=== PATIENT | male | born 1940 | race African-American/Black ===

== ENCOUNTER 2019-01-26 00:49 | Inpatient (IN) | payer MEDICARE ==
[2019-01-26 01:19] VITALS: BMI 31.3
--- NOTE | 2019-01-26 01:34 | PDOC ---
History of Present Illness - General Chief Complaint: Syncope/Near Syncope Stated Complaint: SYNCOPE Time Seen by Provider: 01/26/19 01:34 History Source: Patient, Family Exam Limitations: No Limitations - History of Present Illness Initial Comments: 78 year old male with PMH HTN, lymphoma (in remission) presented to ED for syncopal episode today. Pt reported around 0000 he was walking up the stairs, then felt very short of breath, and sat down in a chair, then had a witnessed syncopal episode in the chair. Daughter and Son at bedside witnessed the event, and reported he was unconscious for a few seconds, then returned to baseline. Daughter is a nurse and used her personal pulse oximeter on the patient while he was unconscious, reported it was 90%, then return to normal after the pt awoke. Pt reported he now does not feel short of breath, denied chest pain/ palpitations/cough/lower extremity swelling/abdominal pain/back pain/nausea/ vomiting/diarrhea. Pt denied head injury, vomiting. ROS General: denied fever, chills, generalized weakness. HEENT: denied sore throat, rhinorrhea, ear pain. Cardiovascular: denied chest pain, palpitations, syncope, diaphoresis. Respiratory: admitted to shortness of breath, sycnope. denied cough, sputum production, hemoptysis. Gastrointestinal: denied abdominal pain, nausea, vomiting, diarrhea, constipation, blood in stool. Genitourinary: denied dysuria, increased urinary frequency, hematuria, urinary incontinence, flank pain. Back: denied back pain. Musculoskeletal: denied joint pain, muscle pain, joint swelling. Neurological: denied headache, dizziness, numbness, tingling, weakness. Integumentary: denied rash, laceration, abrasion. Hematologic/Lymphatic: denied bruising or bleeding. PE Constitutional: Well-nourished, Well-developed, appearing stated age. HEENT: head is normocephalic, atraumatic. EOMI. PERRLA. Neck: supple. Full ROM. Cardiovascular: regular heart rhythm. no murmurs. no pericardial friction rub. Respiratory: clear to auscultation bilaterally. no crackles, rhonchi or wheezing. no stridor. Gastrointestinal: soft, nontender. normal bowel sounds. no rebound, guarding, masses. Extremities: peripheral pulses intact. no lower extremity edema. Neurological: CN 2-12 grossly intact. moves all four extremities. Psych: awake, alert, oriented x3. follows commands. answers questions appropriately. Past History - Past Medical History Allergies/Adverse Reactions: Allergies Allergy/AdvReac Type Severity Reaction Status Date / Time Penicillins Allergy Verified 01/26/19 01:19 - Psycho Social/Smoking Cessation Hx Smoking History: Never smoked Hx Alcohol Use: Yes (SOCIAL) Drug/Substance Use Hx: No Substance Use Type: None *Physical Exam - Vital Signs Last Vital Signs Temp Pulse Resp BP Pulse Ox 97.8 F 80 17 150/85 97 01/26/19 01:07 01/26/19 01:07 01/26/19 01:07 01/26/19 01:07 01/26/19 01:07 ED Treatment Course - LABORATORY CBC & Chemistry Diagram: 01/26/19 03:43 01/26/19 02:35 Medical Decision Making - Medical Decision Making 78 year old male with above PMH presented to ED for syncopal episode after GOLDBERG going up stairs. Initial Vital Signs Temp Pulse Resp BP Pulse Ox 97.8 F 80 17 150/85 97 01/26/19 01:07 01/26/19 01:07 01/26/19 01:07 01/26/19 01:07 01/26/19 01:07 Afebrile. No tachycardia. No tachypnea. Hypertensive. No hypoxia on room air. Labs ordered: CBC, CMP, cardiac profile, BNP, D-DIMER, PT/PTT/INR Imaging ordered: CXR Medications ordered: none EKG performed at 0123: rate 77, regular rhythm, normal axis, normal intervals, flat T in aVL, no other ST changes. 01/26/19 03:52 Laboratory Last Values WBC Cancelled 01/26/19 02:35 Corrected WBC (auto) Cancelled 01/26/19 02:35 RBC Cancelled 01/26/19 02:35 Hgb Cancelled 01/26/19 02:35 Hct Cancelled 01/26/19 02:35 MCV Cancelled 01/26/19 02:35 MCH Cancelled 01/26/19 02:35 MCHC Cancelled 01/26/19 02:35 RDW Cancelled 01/26/19 02:35 Plt Count Cancelled 01/26/19 02:35 MPV Cancelled 01/26/19 02:35 Absolute Neuts (auto) Cancelled 01/26/19 02:35 Absolute Lymphs (auto) Cancelled 01/26/19 02:35 Absolute Monos (auto) Cancelled 01/26/19 02:35 Absolute Eos (auto) Cancelled 01/26/19 02:35 Absolute Basos (auto) Cancelled 01/26/19 02:35 Add Manual Diff Cancelled 01/26/19 02:35 Neutrophils % Cancelled 01/26/19 02:35 Lymphocytes % Cancelled 01/26/19 02:35 Monocytes % Cancelled 01/26/19 02:35 Eosinophils % Cancelled 01/26/19 02:35 Basophils % Cancelled 01/26/19 02:35 Nucleated RBC % Cancelled 01/26/19 02:35 Platelet Estimate Cancelled 01/26/19 02:35 Platelet Comment Cancelled 01/26/19 02:35 Normal RBC Morphology Cancelled 01/26/19 02:35 PT with INR 13.00 SEC (9.7-13.0) 01/26/19 02:35 INR 1.10 (0.83-1.09) H 01/26/19 02:35 PTT (Actin FS) 19.6 SECONDS (25.2-36.5) L 01/26/19 02:35 D-Dimer 55927 ng/ml (0-500) H 01/26/19 02:35 Sodium 138 mmol/L (136-145) 01/26/19 02:35 Potassium 4.4 mmol/L (3.5-5.1) 01/26/19 02:35 Chloride 103 mmol/L (98-107) 01/26/19 02:35 Carbon Dioxide 29 mmol/L (21-32) 01/26/19 02:35 Anion Gap 7 MMOL/L (8-16) L 01/26/19 02:35 BUN 18.8 mg/dL (7-18) H 01/26/19 02:35 Creatinine 1.1 mg/dL (0.55-1.3) 01/26/19 02:35 Est GFR (CKD-EPI)AfAm 75.18 01/26/19 02:35 Est GFR (CKD-EPI)NonAf 64.86 01/26/19 02:35 Random Glucose 119 mg/dL (74-106) H 01/26/19 02:35 Calcium 8.8 mg/dL (8.5-10.1) 01/26/19 02:35 Total Bilirubin 0.7 mg/dL (0.2-1) 01/26/19 02:35 AST 29 U/L (15-37) 01/26/19 02:35 ALT 26 U/L (13-61) 01/26/19 02:35 Alkaline Phosphatase 127 U/L (45-117) H 01/26/19 02:35 Creatine Kinase 114 U/L (26-308) 01/26/19 02:35 Troponin I 0.98 ng/ml (0.00-0.05) H* 01/26/19 02:35 B-Natriuretic Peptide 43.8 pg/ml (5-450) 01/26/19 02:35 Total Protein 7.1 g/dl (6.4-8.2) 01/26/19 02:35 Albumin 4.3 g/dl (3.4-5.0) 01/26/19 02:35 Elevated dimer with elevated troponin. Pt is high risk for PE. ASA 324 mg PO chew once ordered. CTA chest ordered. 01/26/19 04:24 CBC WBC 7.0 K/mm3 (4.0-10.0) 01/26/19 03:43 Corrected WBC (auto) Cancelled 01/26/19 02:35 RBC 5.14 M/mm3 (4.00-5.60) 01/26/19 03:43 Hgb 14.0 GM/dL (11.7-16.9) 01/26/19 03:43 Hct 42.5 % (35.4-49) 01/26/19 03:43 MCV 82.8 fl (80-96) 01/26/19 03:43 MCH 27.2 pg (25.7-33.7) 01/26/19 03:43 MCHC 32.8 g/dl (32.0-35.9) 01/26/19 03:43 RDW 14.5 % (11.9-15.9) 01/26/19 03:43 Plt Count 129 K/MM3 (134-434) L 01/26/19 03:43 MPV 8.4 fl (7.5-11.1) 01/26/19 03:43 Absolute Neuts (auto) 4.6 K/mm3 (1.5-8.0) 01/26/19 03:43 Absolute Lymphs (auto) Cancelled 01/26/19 02:35 Absolute Monos (auto) Cancelled 01/26/19 02:35 Absolute Eos (auto) Cancelled 01/26/19 02:35 Absolute Basos (auto) Cancelled 01/26/19 02:35 Add Manual Diff Cancelled 01/26/19 02:35 Neutrophils % 66.0 % (42.8-82.8) 01/26/19 03:43 Lymphocytes % 22.5 % (8-40) 01/26/19 03:43 Monocytes % 10.1 % (3.8-10.2) 01/26/19 03:43 Eosinophils % 1.1 % (0-4.5) 01/26/19 03:43 Basophils % 0.3 % (0-2.0) 01/26/19 03:43 Nucleated RBC % 0 % (0-0) 01/26/19 03:43 Platelet Estimate Cancelled 01/26/19 02:35 Platelet Comment Cancelled 01/26/19 02:35 Normal RBC Morphology Cancelled 01/26/19 02:35 01/26/19 06:07 Dr. Garza called from Imaging phone specialist, reported saddle embolus. Heparin ordered. 01/26/19 06:56 Dr. Whitney consulted, he reported he will be able to care for the patient at our facility. Sign out given to ICU. Pending admission. 01/26/19 07:02 EKG performed a 0657: rate 74, regular rhythm, normal axis, normal intervals, flat T in aVL, no other ST changes. Discharge - Discharge Information Problems reviewed: Yes Clinical Impression/Diagnosis: Saddle embolism of pulmonary artery Condition: Guarded - Admission Yes - Follow up/Referral - Patient Discharge Instructions - Post Discharge Activity
--- NOTE | 2019-01-26 01:57 | PDOC ---
Attending Attestation - Resident Resident Name: Jimena Bain - ED Attending Attestation I have performed the following: I have examined & evaluated the patient, The case was reviewed & discussed with the resident, I agree w/resident's findings & plan, Exceptions are as noted - HPI HPI: 01/26/19 03:58 78 years old with past medical history significant for hypertension and remote history of lymphoma presents to the ED with an exertional syncopal event after walking up a flight of stairs patient began to feel short of breath then syncopized was unconscious for a few seconds daughter who is a nurse checked an O2 sat which was 90% patient now with no complaints Symptoms were exacerbated by exertion alleviated with time - Physicial Exam PE: 01/26/19 03:58 Vitals: Triage Vital signs reviewed General Appearance: No acute distress, well nourished well developed, Head: Atraumatic, Chest Wall: Nontender Cardiac: Regular rate and rhythym, no murmurs, no rubs, no gallops, Lungs: Clear to auscultation bilateral, good air movement bilaterally, Abdomen: Soft, non distended, normal bowel sounds, non tender to palpation Extremities: Full range of motion to all extremities, no cyanosis, clubbing, or edema Skin: Warm and dry, no rashes or lesions, no rash, no petechiae Psych: Normal mood, normal affect - Critical Care Time Total Critical Care Time: 45 Critical Care Statement: The care of this patient involved high complexity decision making to prevent further life threatening deterioration of the patient 's condition and/or to evaluate & treat vital organ system(s) failure or risk of failure. - Medical Decision Making 01/26/19 03:59 78 years old with syncopal event We will check labs EKG troponin d-dimer given shortness of breath observe and reassess Troponin slightly elevated d-dimer moderately elevated will CTA to rule out PE patient will require admission for further management. Reevaluation CTA positive for saddle embolism see official imaging front end wheel loader operator report No evidence of significant right heart strain noted on CT Case discussed with interventional radiology Dr. Suarez and ICU Dr. Crouch Given that patient is hemodynamically stable will place patient on a heparin drip and admit patient to ICU Stat echo ordered for patient Findings discussed with patient and family patient pending ICU placement Heart Score/ECG Review - ECG Impressions Comment:: 01/26/19 04:02 EKG performed at 123 demonstrates normal sinus rhythm no ST elevations or T wave inversions normal axis Interpreted by me.
[2019-01-26 03:31] LABS: ALBUMIN 4.3 g/dl (3.4-5.0); BILIRUBIN,TOTAL 0.7 mg/dL (0.2-1); BLOOD UREA NITROGEN 18.8 mg/dL (7-18); CALCIUM 8.8 mg/dL (8.5-10.1); CREATININE 1.1 mg/dL (0.55-1.3); POTASSIUM 4.4 mmol/L (3.5-5.1); TOT PROT 7.1 g/dl (6.4-8.2)
[2019-01-26] MEDS ORDERED: ASPIRIN 81 MG CHEWABLE TABLETS PO ONE (03:33)
[2019-01-26 03:37] LABS: INR 1.1 (0.83-1.09)
[2019-01-26 04:02] LABS: BASO % 0.3 % (0-2.0); EOS % 1.1 % (0-4.5); HEMATOCRIT 42.5 % (35.4-49); LYMPH % 22.5 % (8-40); MCH 27.2 pg (25.7-33.7); MCHC 32.8 g/dl (32.0-35.9); MEAN CELL VOLUME 82.8 fl (80-96); MEAN PLT VOLUME 8.4 fl (7.5-11.1); MONO % 10.1 % (3.8-10.2); PLATELET COUNT 129 K/MM3 (134-434); RBC 5.14 M/mm3 (4.00-5.60); RDW 14.5 % (11.9-15.9)
[2019-01-26] MEDS ORDERED: ASPIRIN 81 MG CHEWABLE TABLETS ONE (04:04)
[2019-01-26] MEDS ORDERED: HEPARIN NA (PORCINE) 5,000 UNITS/ML 1ML VIAL IVPUSH PRN ×3 (06:08→06:09)
[2019-01-26] MEDS ORDERED: HEPARIN INFUSION - 25,000 UNITS/500 ML INFUS.BAG IVPB ONE (07:24)
[2019-01-26] MEDS: HEPARIN - 25,000 UNIT in SODIUM CHLORIDE 495 ML IV SCH ×2 (07:34→08:43)
--- NOTE | 2019-01-26 08:00 | HP ---
CHIEF COMPLAINT: Shortness of breath PCP: Floyd HISTORY OF PRESENT ILLNESS: Pt is a 78 y/o M (B. [facility]. [facility]) with a PMH of HTN, HLD, and Lymphoma (diagnosed 2000 now in remission) who presents to [facility] due to shortness of breath and syncope. Pt accompanied by daughter at bedside. Per patient, he was visiting his brother yesterday after [employer]ecost[employer]. Pt had an uneventful lunch with brother; later that evening, pt endorses he abruptly became short of breath while walking up stairs in his house. Pt went to sit on a couch in his home when he lost consciousness. Pt's son witnessed this episode. Pt denies any chest pain during the event. Denies any recent travel history, immobilization, history of clotting disorders, recent surgery, or any other possible precipitating factors. Daughter does state that pt may sometimes sit all day while he is on his computer. PMH- As above Social History- Denies Tobacco or alcohol use. Denies illicit drug use. Fam Hx- Father-DM. Mother Healthy. Sibling with DM Surg History- Denies Allergies- Penicillin ER course was notable for: (1) D-Dimer 91763 (2) Trop 0.98 (3) CTA---> Saddle Pulm Embolus Recent Travel: PAST MEDICAL HISTORY: PAST SURGICAL HISTORY: Social History: Smoking: Alcohol: Drugs: Allergies Penicillins Allergy (Verified 01/26/19 01:19) HOME MEDICATIONS: REVIEW OF SYSTEMS CONSTITUTIONAL: Absent: fever, chills, diaphoresis, generalized weakness, malaise, loss of appetite, weight change HEENT: Absent: rhinorrhea, nasal congestion, throat pain, throat swelling, difficulty swallowing, mouth swelling, ear pain, eye pain, visual changes CARDIOVASCULAR: Absent: chest pain, syncope, palpitations, irregular heart rate, lightheadedness , peripheral edema RESPIRATORY: PRESENT shortness of breath GASTROINTESTINAL: Absent: abdominal pain, abdominal distension, nausea, vomiting, diarrhea, constipation, melena, hematochezia GENITOURINARY: Absent: dysuria, frequency, urgency, hesitancy, hematuria, flank pain, genital pain MUSCULOSKELETAL: Absent: myalgia, arthralgia, joint swelling, back pain, neck pain SKIN: Absent: rash, itching, pallor HEMATOLOGIC/IMMUNOLOGIC: Absent: easy bleeding, easy bruising, lymphadenopathy, frequent infections ENDOCRINE: Absent: unexplained weight gain, unexplained weight loss, heat intolerance, cold intolerance NEUROLOGIC: PRESENT syncope PSYCHIATRIC: Absent: anxiety, depression, suicidal or homicidal ideation, hallucinations. PHYSICAL EXAMINATION Vital Signs - 24 hr 01/26/19 01/26/19 01:07 07:09 Temperature 97.8 F 98.0 F Pulse Rate 80 Pulse Rate [ 74 Right Radial] Respiratory 17 16 Rate Blood Pressure 150/85 Blood Pressure 151/79 [Right Arm] O2 Sat by Pulse 97 97 Oximetry (%) GENERAL: NAd AA0x3 HEAD: Normal with no signs of trauma. EYES: EOMI Sclera Clear EARS, NOSE, THROAT: MMM NECK: Supple, No JVD LUNGS: CTA b/l HEART: RRR S1S2 ABDOMEN: Soft, NDNT. MUSCULOSKELETAL: FROM throughout. UPPER EXTREMITIES: 2+ pulses, warm, well-perfused. No cyanosis. No clubbing. No peripheral edema. LOWER EXTREMITIES: Afsaneh's Negative bilaterally. No calf tenderness. No clubbing , cyanosis or edema. NEUROLOGICAL: Cranial nerves II-XII intact. Normal speech. PSYCHIATRIC: Cooperative. Good eye contact. Appropriate mood and affect. SKIN: Moist. No rashes or lesions appreciated Laboratory Results - last 24 hr 01/26/19 01/26/19 01/26/19 02:35 02:35 02:35 WBC Cancelled Corrected WBC (auto) Cancelled RBC Cancelled Hgb Cancelled Hct Cancelled MCV Cancelled MCH Cancelled MCHC Cancelled RDW Cancelled Plt Count Cancelled MPV Cancelled Absolute Neuts (auto) Cancelled Absolute Lymphs (auto) Cancelled Absolute Monos (auto) Cancelled Absolute Eos (auto) Cancelled Absolute Basos (auto) Cancelled Add Manual Diff Cancelled Neutrophils % Cancelled Lymphocytes % Cancelled Monocytes % Cancelled Eosinophils % Cancelled Basophils % Cancelled Nucleated RBC % Cancelled Platelet Estimate Cancelled Platelet Comment Cancelled Normal RBC Morphology Cancelled PT with INR INR PTT (Actin FS) D-Dimer Sodium 138 Potassium 4.4 Chloride 103 Carbon Dioxide 29 Anion Gap 7 L BUN 18.8 H Creatinine 1.1 Est GFR (CKD-EPI)AfAm 75.18 Est GFR (CKD-EPI)NonAf 64.86 Random Glucose 119 H Calcium 8.8 Total Bilirubin 0.7 AST 29 ALT 26 Alkaline Phosphatase 127 H Creatine Kinase 114 Troponin I 0.98 H* B-Natriuretic Peptide Total Protein 7.1 Albumin 4.3 01/26/19 01/26/19 01/26/19 02:35 02:35 02:35 WBC Corrected WBC (auto) RBC Hgb Hct MCV MCH MCHC RDW Plt Count MPV Absolute Neuts (auto) Absolute Lymphs (auto) Absolute Monos (auto) Absolute Eos (auto) Absolute Basos (auto) Add Manual Diff Neutrophils % Lymphocytes % Monocytes % Eosinophils % Basophils % Nucleated RBC % Platelet Estimate Platelet Comment Normal RBC Morphology PT with INR 13.00 INR 1.10 H PTT (Actin FS) 19.6 L D-Dimer Sodium Potassium Chloride Carbon Dioxide Anion Gap BUN Creatinine Est GFR (CKD-EPI)AfAm Est GFR (CKD-EPI)NonAf Random Glucose Calcium Total Bilirubin AST ALT Alkaline Phosphatase Creatine Kinase Troponin I B-Natriuretic Peptide 43.8 Total Protein Albumin 01/26/19 01/26/19 02:35 03:43 WBC 7.0 Corrected WBC (auto) RBC 5.14 Hgb 14.0 Hct 42.5 MCV 82.8 MCH 27.2 MCHC 32.8 RDW 14.5 Plt Count 129 L MPV 8.4 Absolute Neuts (auto) 4.6 Absolute Lymphs (auto) Absolute Monos (auto) Absolute Eos (auto) Absolute Basos (auto) Add Manual Diff Neutrophils % 66.0 Lymphocytes % 22.5 Monocytes % 10.1 Eosinophils % 1.1 Basophils % 0.3 Nucleated RBC % 0 Platelet Estimate Platelet Comment Normal RBC Morphology PT with INR INR PTT (Actin FS) D-Dimer 84886 H Sodium Potassium Chloride Carbon Dioxide Anion Gap BUN Creatinine Est GFR (CKD-EPI)AfAm Est GFR (CKD-EPI)NonAf Random Glucose Calcium Total Bilirubin AST ALT Alkaline Phosphatase Creatine Kinase Troponin I B-Natriuretic Peptide Total Protein Albumin ASSESSMENT/PLAN: Pt is a 78 y/o M (B. Dem. [facility]) with a PMH of HTN, HLD, and Lymphoma (diagnosed 2000 now in remission) who presents to [facility] due to shortness of breath and syncope #Cardio---- Saddle Pulmonary Embolus -CTA-----> Bilateral PE w/ Saddle pulmonary embolus extending from the right main pulmonary artery into the left main pulmonary artery -D-Dimer 01324 -Trop 0.98--Will trend -Pt started on Heparin drip. Will bolus patient now with 7,000 U weight based based on PE Heparin protocol. Will place patient on 32 cc hep gtt as well based on weight and PE history. -Dr Trujillo consulted. Plan to take patient for Cath Directed Thrombectomy -ICU admission- Dr Crouch aware and accepts patient to service. Continuous cardiac and pulse ox monitoring #FEN -NS@75cc -Monitor Electrolytes -NPO #DVT ppx -Hep gtt #Dispo -ICU Admission Visit type - Emergency Visit Emergency Visit: Yes ED Registration Date: 01/26/19 Care time: The patient presented to the Emergency Department on the above date and was hospitalized for further evaluation of their emergent condition. - New Patient This patient is new to me today: Yes Date on this admission: 01/26/19 - Critical Care Critical Care patient: No ATTENDING PHYSICIAN STATEMENT I saw and evaluated the patient. I reviewed the resident's note and discussed the case with the resident. I agree with the resident's findings and plan as documented. SUBJECTIVE: OBJECTIVE: ASSESSMENT AND PLAN:
[2019-01-26] MEDS ORDERED: HEPARIN NA (PORCINE) 5,000 UNITS/ML 1ML VIAL IVPUSH ONE (08:20)
--- NOTE | 2019-01-26 08:44 | PN ---
Teaching Attending Note Name of Resident: Matt Banegas ATTENDING PHYSICIAN STATEMENT I saw and evaluated the patient. I reviewed the resident's note and discussed the case with the resident. I agree with the resident's findings and plan as documented. SUBJECTIVE: CC: Syncope and SOB HPI: Mr. Sandy is a pleasant 78 y/o gentleman with h/o HLP, HTN, and Non Hodgkin 's lymphoma s/p chemo in 2010 , now in remission who presented with sudden onset SOb and syncope. patient and daugther provided the hx. close to [place] last nig , they returned home and after climbing the stairs to his home, he felt very SOB. He was going to the recliner to rest when all of sudden he lost consciousness and fell onthe recliner. No head trauma. BP was taken by daughter rima it was high ( she can't recalll number, ) SAt O2 was 90%. 911 was called. No recent hx of travel, or surgery. No h/o active cancer. last colo was 10 yrs ago, no smoking . He sits at his computer for many hours every day . Upon arrival to ER. D dimer was elevated. VS were stable. CTA was done and the prelim report showed b/l pulm emboli with saddle embolism. he was started on heparin gtt at 7:30 am. IR was called OBJECTIVE: NAd, awake, alert, cooperative. HEENT: MMM, no facial droop. no LAP inneck . CV: RRR, no MRG Lungs: CTAB Abd; soft, NT, ND , no hepatomegaly, NL BS Ext: No edema or erythema on upper or lower extremities. fungal infection in R 4th interdigital web. Neuro: EOMI, round equal pupils. Reactive to light.tongue and uvula at midline. strength 5/5 in upper and lower extremities proximally and ddistally. sensation to light touch nl in face and rest of the body. . EKG sinus rhythm, prolonged QTc . nl axis. no BBB CT reperot ( prelim ) reviewed. ASSESSMENT AND PLAN: Mr. Sandy is a pleasant 78 y/o gentleman with h/o HLP, HTN, and Non Hodgkin's lymphoma s/p chemo in 2010 , now in remission who presented with sudden onset SOb and syncope 1- Saddle PE with b/l emboli. Could be provoked by sedentary life style ( prolonged sitting at home ). Other reasons like hypercoagulable state , migth need to be r/o . - He was started on heparin gtt with no bolus an hour ago.. - will give bolus fo 7000 units now ( 80u/kg) - will increase heparin gtt rate form 23 cc to 32 cc ( 18 units/kg= 1620 units = 32 ml ) - will adjust heparin infusion protocol fro a goal PTT of 70-90 - monitor PTT. next one in 4 hours - EKG with no signs of Right heart strain. hypodermically stable. - I discussed case with Dr. Whitney, who indicated no role for thrombectomy without evidence of R heart strain. - will get stat Echo. repeat trop - will decide on IR intervention after echo results and repeat trop . - ICU admission - monitor closely - needs hypercoagulable w/u and age appropriate cancer screening. - I d/w maricarmen and his daugther risk of bleeding with AC. they accept the risk of bleedign given the increased risk of thrombus expansion with no AC. 2- H/o HTN: monitor BP closely for now. 3- H/o HL Critical Care Total Critical Care Time (in minutes): 40 Critical Care Statement: The care of this patient involved high complexity decision making to prevent further life threatening deterioration of the patient 's condition and/or to evaluate & treat vital organ system(s) failure or risk of failure.
[2019-01-26] MEDS ORDERED: HEPARIN - 25,000 UNIT in SODIUM CHLORIDE 495 ML IV SCH ×2 (09:15→09:34)
[2019-01-26] MEDS ORDERED: MUPIROCIN 2% TOPICAL OINTMENT FOR DECOLONIZATION NS SCH (10:00)
--- NOTE | 2019-01-26 10:00 | EKG ---
Test Reason : Blood Pressure : / mmHG Vent. Rate : 074 BPM Atrial Rate : 074 BPM P-R Int : 156 ms QRS Dur : 080 ms QT Int : 434 ms P-R-T Axes : 060 -11 024 degrees QTc Int : 481 ms NORMAL SINUS RHYTHM PROLONGED QT ABNORMAL ECG WHEN COMPARED WITH ECG OF 26-JAN-2019 01:23, NO SIGNIFICANT CHANGE WAS FOUND Confirmed by LADY VAUGHN MD ([id number]) on 01/26/2019 10:00:02 AM Referred By: Confirmed By:LADY VAUGHN MD
--- NOTE | 2019-01-26 10:00 | EKG ---
Test Reason : Blood Pressure : / mmHG Vent. Rate : 077 BPM Atrial Rate : 077 BPM P-R Int : 178 ms QRS Dur : 088 ms QT Int : 422 ms P-R-T Axes : 062 -08 042 degrees QTc Int : 477 ms NORMAL SINUS RHYTHM NORMAL ECG NO PREVIOUS ECGS AVAILABLE Confirmed by LADY VAUGHN MD ([id number]) on 01/26/2019 10:00:26 AM Referred By: Confirmed By:LADY VAUGHN MD
[2019-01-26] MEDS ORDERED: SODIUM CHLORIDE 1,000 ML IV SCH ×2 (10:15→18:08)
[2019-01-26] MEDS ORDERED: ACETAMINOPHEN INJECTION 100 ML IVPB ONE (11:11)
[2019-01-26] MEDS ORDERED: ONDANSETRON 4 MG/2 ML VIAL ONE (11:12)
--- NOTE | 2019-01-26 12:03 | ECHO ---
Name: LIT NULL Exam:Adult Echocardiogram Study Date: 01/26/2019 09:26 AM Age: 78 yrs Reason For Study: sddle PE Height: 67 in Weight: 200 lb BSA: 2.0 m2 MMode/2D Measurements & Calculations IVSd: 1.1 cm Ao root diam: 2.2 cm LVIDd: 3.0 cm LA dimension: 2.4 cm LVIDs: 2.2 cm LVPWd: 1.2 cm LVPWs: 1.2 cm EDV(Teich): 34.8 ml ESV(Teich): 16.4 ml LVOT diam: 1.8 cm TAPSE: 1.3 cm RV S Alex: 11.6 cm/sec Doppler Measurements & Calculations MV E max alex: 40.5 cm/sec Ao V2 max: 122.4 cm/sec MV A max alex: 97.7 cm/sec Ao max P.0 mmHg MV E/A: 0.41 AI P1/2t: 553.0 msec MV dec time: 0.19 sec SHERIN(V,D): 1.7 cm2 AI max alex: 333.3 cm/sec LV V1 max P.8 mmHg AI max P.4 mmHg LV V1 max: 84.4 cm/sec AI dec slope: 176.5 cm/sec2 TR max alex: 181.3 cm/sec PA V2 max: 62.5 cm/sec TR max P.2 mmHg PA max P.6 mmHg Med Peak E' Alex: 3.5 cm/sec Med E/e': 11.5 Lat Peak E' Alex: 6.4 cm/sec Lat E/e': 6.3 Procedure A complete two-dimensional transthoracic echocardiogram was performed (2D, M-mode, Doppler and color flow Doppler). Technically limited study. Left Ventricle The left ventricle is normal in size. Left ventricular systolic function is normal. Ejection Fraction = 55- 60%. No regional wall motion abnormalities noted. Right Ventricle The right ventricle is not well visualized. RV systolic function could not be accurately visualized b ut appears somewhat diminished. Atria The left atrial size is normal. Right atrial size is normal. Mitral Valve There is mild mitral annular calcification. There is no mitral regurgitation noted. Tricuspid Valve The tricuspid valve is normal in structure and function. There is mild tricuspid regurgitation. Right ventricular systolic pressure is normal. Aortic Valve There is mild aortic sclerosis.;. Mild aortic regurgitation. Pulmonic Valve The pulmonic valve is not well visualized. Great Vessels The aortic root is normal size. Pericardium/Pleura There is no pericardial effusion. Interpretation Summary Technically limited study The left ventricle is normal in size. Left ventricular systolic function is normal. No regional wall motion abnormalities noted. Ejection Fraction = 55-60%. The right ventricle is not well visualized. RV systolic function could not be accurately visualized but appears somewhat mildly diminished The left atrial size is normal. Right atrial size is normal. There is mild mitral annular calcification. There is mild tricuspid regurgitation. Right ventricular systolic pressure is normal. No evidence of pulmonary hypertension There is mild aortic sclerosis. Mild aortic regurgitation. The aortic root is normal size. There is no pericardial effusion. Previous study is not available for comparison Clinical correlation is recommended Gio Prescott MD 01/26/2019 12:03 PM
[2019-01-26] MEDS ORDERED: MECLIZINE HCL 25 MG TABLET (FP) ONE (13:07)
[2019-01-26] MEDS ORDERED: ENOXAPARIN NA (PORCINE) 100 MG/1 ML DISP.SYRIN SQ SCH (13:15)
[2019-01-26] MEDS ORDERED: ENOXAPARIN NA (PORCINE) 100 MG/1 ML DISP.SYRIN SQ ONE (13:23)
--- NOTE | 2019-01-26 14:07 | CONSULT ---
Consultation: CONSULT REQUEST: ICU CONSULT HISTORY OF PRESENT ILLNESS: Patient is a 78 yo M with a PMHx of HTN, Non-Hodgkins Lymphoma (s/p chemo in 2010), presented with SOB and an episode of syncope yesterday. He said he was walking up the stairs last night when he felt sob. He then went on the couch and lost consciousness for less than a minute per daughter. His daughter checked his O2 sat via pulse oximeter and had a read of 90%. 911 was called and patient was brought to the ER where he was found to have b/l pulm saddle embolism via CTA. Echo was done with poor evaluation of RV. possible slight decrease in RV. No evidence of Pulm Htn. Patient HD stable, Heart rate wnl, saturating well on nasal canula. Offers no complaints at this time. Denies SOB, chest pain, nausea, vomiting, fevers, chills. Denies recent travel, history of clots, family history of clots. REVIEW OF SYSTEMS: CONSTITUTIONAL: Absent: fever, chills, diaphoresis, generalized weakness, malaise, loss of appetite, weight change HEENT: Absent: rhinorrhea, nasal congestion, throat pain, throat swelling, difficulty swallowing, mouth swelling, ear pain, eye pain, visual changes CARDIOVASCULAR: Absent: chest pain, syncope, palpitations, irregular heart rate, lightheadedness , peripheral edema RESPIRATORY: Absent: cough, shortness of breath, dyspnea with exertion, orthopnea, wheezing, stridor, hemoptysis GASTROINTESTINAL: Absent: abdominal pain, abdominal distension, nausea, vomiting, diarrhea, constipation, melena, hematochezia SKIN: Absent: rash, itching, pallor PHYSICAL EXAMINATION Vital Signs - 24 hr 01/26/19 01/26/19 01/26/19 01:07 07:09 08:42 Temperature 97.8 F 98.0 F 98.2 F Pulse Rate 80 Pulse Rate [ 74 71 Right Radial] Respiratory 17 16 14 Rate Blood Pressure 150/85 Blood Pressure 151/79 146/86 [Right Arm] O2 Sat by Pulse 97 97 100 Oximetry (%) 01/26/19 01/26/19 01/26/19 09:42 09:47 11:01 Temperature Pulse Rate Pulse Rate [ 67 73 Right Radial] Respiratory 17 17 Rate Blood Pressure Blood Pressure 149/83 151/74 [Right Arm] O2 Sat by Pulse 100 100 100 Oximetry (%) 01/26/19 13:33 Temperature Pulse Rate Pulse Rate [ 67 Right Radial] Respiratory 17 Rate Blood Pressure Blood Pressure 157/64 [Right Arm] O2 Sat by Pulse 100 Oximetry (%) GENERAL: a/o x 3 HEAD: Normal with no signs of trauma. EYES: Pupils equal, round and reactive to light, extraocular movements intact, sclera anicteric EARS, NOSE, THROAT: oropharynx clear without exudates. Moist mucous membranes. NECK: supple without lymphadenopathy, JVD, or masses. LUNGS: Breath sounds equal, clear to auscultation bilaterally HEART: RRR ABDOMEN: Soft, nontender, not distended, normoactive bowel sounds UPPER EXTREMITIES: 2+ pulses, warm, well-perfused. No peripheral edema. NEUROLOGICAL: Cranial nerves II-XII intact. Normal speech. Normal gait. Laboratory Results - last 24 hr 01/26/19 01/26/19 01/26/19 02:35 02:35 02:35 WBC Cancelled Corrected WBC (auto) Cancelled RBC Cancelled Hgb Cancelled Hct Cancelled MCV Cancelled MCH Cancelled MCHC Cancelled RDW Cancelled Plt Count Cancelled MPV Cancelled Absolute Neuts (auto) Cancelled Absolute Lymphs (auto) Cancelled Absolute Monos (auto) Cancelled Absolute Eos (auto) Cancelled Absolute Basos (auto) Cancelled Add Manual Diff Cancelled Neutrophils % Cancelled Lymphocytes % Cancelled Monocytes % Cancelled Eosinophils % Cancelled Basophils % Cancelled Nucleated RBC % Cancelled Platelet Estimate Cancelled Platelet Comment Cancelled Normal RBC Morphology Cancelled PT with INR INR PTT (Actin FS) D-Dimer Sodium 138 Potassium 4.4 Chloride 103 Carbon Dioxide 29 Anion Gap 7 L BUN 18.8 H Creatinine 1.1 Est GFR (CKD-EPI)AfAm 75.18 Est GFR (CKD-EPI)NonAf 64.86 Random Glucose 119 H Calcium 8.8 Total Bilirubin 0.7 AST 29 ALT 26 Alkaline Phosphatase 127 H Creatine Kinase 114 Troponin I 0.98 H* B-Natriuretic Peptide Total Protein 7.1 Albumin 4.3 01/26/19 01/26/19 01/26/19 02:35 03:43 08:35 WBC 7.0 Corrected WBC (auto) RBC 5.14 Hgb 14.0 Hct 42.5 MCV 82.8 MCH 27.2 MCHC 32.8 RDW 14.5 Plt Count 129 L MPV 8.4 Absolute Neuts (auto) 4.6 Absolute Lymphs (auto) Absolute Monos (auto) Absolute Eos (auto) Absolute Basos (auto) Add Manual Diff Neutrophils % 66.0 Lymphocytes % 22.5 Monocytes % 10.1 Eosinophils % 1.1 Basophils % 0.3 Nucleated RBC % 0 Platelet Estimate Platelet Comment Normal RBC Morphology PT with INR INR PTT (Actin FS) D-Dimer 37719 H Sodium Potassium Chloride Carbon Dioxide Anion Gap BUN Creatinine Est GFR (CKD-EPI)AfAm Est GFR (CKD-EPI)NonAf Random Glucose Calcium Total Bilirubin AST ALT Alkaline Phosphatase Creatine Kinase 91 Troponin I 1.14 H* B-Natriuretic Peptide Total Protein Albumin Active Medications Generic Name Dose Route Start Last Admin Trade Name Freq PRN Reason Stop Dose Admin Chlorhexidine Gluconate 1 applic 01/26/19 22:00 Hibiclens For Decolonization - TP HS CHINTAN Enoxaparin Sodium 90 mg 01/26/19 13:15 01/26/19 13:30 Lovenox - SQ 90 mg BID [facility]INTAN Administration Sodium Chloride 1,000 mls @ 75 mls/hr 01/26/19 10:15 01/26/19 11:24 Normal Saline - IV 75 mls/hr ASDIR CHINTAN Administration Mupirocin 1 applic 01/26/19 10:00 01/26/19 10:01 Bactroban Ointment (For Decolonization) - NS 01/31/19 09:59 Not Given BID CHINTAN ASSESSMENT/PLAN: #B/L Saddle PE #Syncope #HTN #Hx of Non-Hodgkins Lymphoma -Patient was on heparin drip, now on Lovenox. -HD stable, saturating well, asymptomatic -No indication for tPA at this time due to the reasons above. -IR on board -trend troponin -monitor vital signs -tele monitoring Dispo: We will continue to follow the patient. Thank you for this consultative opportunity. Visit type - Emergency Visit Emergency Visit: Yes ED Registration Date: 01/26/19 Care time: The patient presented to the Emergency Department on the above date and was hospitalized for further evaluation of their emergent condition. - New Patient This patient is new to me today: Yes Date on this admission: 01/26/19 - Critical Care Critical Care patient: Yes Total Critical Care Time (in minutes): 40 Critical Care Statement: The care of this patient involved high complexity decision making to prevent further life threatening deterioration of the patient 's condition and/or to evaluate & treat vital organ system(s) failure or risk of failure. ATTENDING PHYSICIAN STATEMENT I saw and evaluated the patient. I reviewed the resident's note and discussed the case with the resident. I agree with the resident's findings and plan as documented. SUBJECTIVE: OBJECTIVE: ASSESSMENT AND PLAN:
--- NOTE | 2019-01-26 15:14 | PN ---
Teaching Attending Note Name of Resident: Indira Obregon ATTENDING PHYSICIAN STATEMENT I saw and evaluated the patient. I reviewed the resident's note and discussed the case with the resident. I agree with the resident's findings and plan as documented. SUBJECTIVE: Patient seen and examined in the ER. Breathing feels better. NAD. No CP. ECHO: some poor windows but no indication of Right heart strain. Intake & Output 01/23/19 01/24/19 01/25/19 01/26/19 23:59 23:59 23:59 23:59 Weight 200 lb Last Vital Signs Temp Pulse Resp BP Pulse Ox 98.2 F 62 17 129/71 100 01/26/19 08:42 01/26/19 14:41 01/26/19 14:41 01/26/19 14:41 01/26/19 14:41 Active Medications Chlorhexidine Gluconate (Hibiclens For Decolonization -) 1 applic TP HS [facility] Enoxaparin Sodium (Lovenox -) 90 mg SQ BID [facility] Last Admin: 01/26/19 13:30 Dose: 90 mg Sodium Chloride (Normal Saline -) 1,000 mls @ 75 mls/hr IV ASDIR [facility] Last Admin: 01/26/19 11:24 Dose: 75 mls/hr Mupirocin (Bactroban Ointment (For Decolonization) -) 1 applic NS BID [facility] Stop: 01/31/19 09:59 Last Admin: 01/26/19 10:01 Dose: Not Given GENERAL: Awake and alert, NAD HEAD: Normal with no signs of trauma. EYES: Pupils equal, round and reactive to light, extraocular movements intact, sclera anicteric EARS, NOSE, THROAT: oropharynx clear without exudates. Moist mucous membranes. NECK: supple without lymphadenopathy, JVD, or masses. LUNGS: Clear to auscultation bilaterally HEART: S1S2, RRR ABDOMEN: Soft, nontender, not distended, normoactive bowel sounds UPPER EXTREMITIES: 2+ pulses, warm, well-perfused. No peripheral edema. NEUROLOGICAL: Non-focal Laboratory Results - last 24 hr 01/26/19 01/26/19 01/26/19 02:35 02:35 02:35 WBC Cancelled Corrected WBC (auto) Cancelled RBC Cancelled Hgb Cancelled Hct Cancelled MCV Cancelled MCH Cancelled MCHC Cancelled RDW Cancelled Plt Count Cancelled MPV Cancelled Absolute Neuts (auto) Cancelled Absolute Lymphs (auto) Cancelled Absolute Monos (auto) Cancelled Absolute Eos (auto) Cancelled Absolute Basos (auto) Cancelled Add Manual Diff Cancelled Neutrophils % Cancelled Lymphocytes % Cancelled Monocytes % Cancelled Eosinophils % Cancelled Basophils % Cancelled Nucleated RBC % Cancelled Platelet Estimate Cancelled Platelet Comment Cancelled Normal RBC Morphology Cancelled PT with INR INR PTT (Actin FS) D-Dimer Sodium 138 Potassium 4.4 Chloride 103 Carbon Dioxide 29 Anion Gap 7 L BUN 18.8 H Creatinine 1.1 Est GFR (CKD-EPI)AfAm 75.18 Est GFR (CKD-EPI)NonAf 64.86 Random Glucose 119 H Calcium 8.8 Total Bilirubin 0.7 AST 29 ALT 26 Alkaline Phosphatase 127 H Creatine Kinase 114 Troponin I 0.98 H* B-Natriuretic Peptide Total Protein 7.1 Albumin 4.3 01/26/19 01/26/19 01/26/19 02:35 03:43 08:35 WBC 7.0 Corrected WBC (auto) RBC 5.14 Hgb 14.0 Hct 42.5 MCV 82.8 MCH 27.2 MCHC 32.8 RDW 14.5 Plt Count 129 L MPV 8.4 Absolute Neuts (auto) 4.6 Absolute Lymphs (auto) Absolute Monos (auto) Absolute Eos (auto) Absolute Basos (auto) Add Manual Diff Neutrophils % 66.0 Lymphocytes % 22.5 Monocytes % 10.1 Eosinophils % 1.1 Basophils % 0.3 Nucleated RBC % 0 Platelet Estimate Platelet Comment Normal RBC Morphology PT with INR INR PTT (Actin FS) D-Dimer 06591 H Sodium Potassium Chloride Carbon Dioxide Anion Gap BUN Creatinine Est GFR (CKD-EPI)AfAm Est GFR (CKD-EPI)NonAf Random Glucose Calcium Total Bilirubin AST ALT Alkaline Phosphatase Creatine Kinase 91 Troponin I 1.14 H* B-Natriuretic Peptide Total Protein Albumin ASSESSMENT/PLAN: Bilateral Pulmonary Embolism: at present hemodynamically stable without evidence of Right Heart Strain Syncope HTN Hx of Non-Hodgkins Lymphoma AC with Lovenox The patient does not meet the criteria for Systemic or Catheter Directed Thrombolysis at this time O2 to maintain saturation At present he does not require ICU monitoring. Can safely monitor in Cardiac Telemetry Will follow Thank you. Dr Crouch
[2019-01-26] MEDS ORDERED: CHLORHEXIDINE GLUCONATE 4% CLEANSER FOR DECOLONIZATION TP SCH (22:00)
[2019-01-26] MEDS: ENOXAPARIN NA (PORCINE) 100 MG/1 ML DISP.SYRIN SQ SCH (22:11)
[2019-01-27 07:53] LABS: BASO % 0.4 % (0-2.0); EOS % 1.8 % (0-4.5); HEMATOCRIT 37.3 % (35.4-49); HEMOGLOBIN 12.3 GM/dL (11.7-16.9); LYMPH % 48.8 % (8-40); MCH 27.1 pg (25.7-33.7); MCHC 33.1 g/dl (32.0-35.9); MEAN CELL VOLUME 81.9 fl (80-96); MEAN PLT VOLUME 9.3 fl (7.5-11.1); MONO % 11.2 % (3.8-10.2); NEUT % 37.8 % (42.8-82.8); PLATELET COUNT 115 K/MM3 (134-434); RBC 4.55 M/mm3 (4.00-5.60); RDW 14.7 % (11.9-15.9); WHITE BLOOD COUNT 5.2 K/mm3 (4.0-10.0)
[2019-01-27 08:23] LABS: ALBUMIN 3.4 g/dl (3.4-5.0); BILIRUBIN,TOTAL 0.9 mg/dL (0.2-1); BLOOD UREA NITROGEN 12.3 mg/dL (7-18); CALCIUM 8.3 mg/dL (8.5-10.1); MAGNESIUM 2.4 mg/dL (1.8-2.4); PHOSPHOROUS 3.3 mg/dL (2.5-4.9); TOT PROT 5.7 g/dl (6.4-8.2)
[2019-01-27 08:31] LABS: INR 1.2 (0.83-1.09); PROTHROMBIN TIME (PATIENT) 14.2 SEC (9.7-13.0)
[2019-01-27 08:32] LABS: ACTIVATED PTT 41.7 SECONDS (25.2-36.5)
[2019-01-27] MEDS: ENOXAPARIN NA (PORCINE) 100 MG/1 ML DISP.SYRIN SQ SCH ×2 (10:29→22:41)
--- NOTE | 2019-01-27 15:48 | PN ---
Progress Note (short form) - Note Progress Note: Resting in NAD. No CP or SOB. Breathing feels better. No acute events overnight. Intake & Output 01/24/19 01/25/19 01/26/19 01/27/19 23:59 23:59 23:59 23:59 Intake Total 225 450 Balance 225 450 Weight 200 lb Last Vital Signs Temp Pulse Resp BP Pulse Ox 97.9 F 62 14 140/79 100 01/27/19 06:00 01/27/19 12:00 01/27/19 12:00 01/27/19 12:00 01/27/19 09:45 Active Medications Enoxaparin Sodium (Lovenox -) 90 mg SQ BID [facility] Last Admin: 01/27/19 10:29 Dose: 90 mg Sodium Chloride (Normal Saline -) 1,000 mls @ 75 mls/hr IV ASDIR [facility] Last Admin: 01/26/19 20:10 Dose: 75 mls/hr GENERAL: Awake and alert, NAD HEAD: Normal with no signs of trauma. EYES: Pupils equal, round and reactive to light, extraocular movements intact, sclera anicteric EARS, NOSE, THROAT: oropharynx clear without exudates. Moist mucous membranes. NECK: supple without lymphadenopathy, JVD, or masses. LUNGS: Clear to auscultation bilaterally HEART: S1S2, RRR ABDOMEN: Soft, nontender, not distended, normoactive bowel sounds UPPER EXTREMITIES: 2+ pulses, warm, well-perfused. No peripheral edema. NEUROLOGICAL: Non-focal Laboratory Results - last 24 hr 01/26/19 01/26/19 01/27/19 13:26 15:45 05:40 WBC 5.2 RBC 4.55 Hgb 12.3 Hct 37.3 MCV 81.9 MCH 27.1 MCHC 33.1 RDW 14.7 Plt Count 115 L MPV 9.3 D Absolute Neuts (auto) 1.9 Neutrophils % 37.8 L D Lymphocytes % 48.8 H D Monocytes % 11.2 H Eosinophils % 1.8 Basophils % 0.4 Nucleated RBC % 0 PT with INR INR PTT (Actin FS) 174.4 H Sodium Potassium Chloride Carbon Dioxide Anion Gap BUN Creatinine Est GFR (CKD-EPI)AfAm Est GFR (CKD-EPI)NonAf Random Glucose Calcium Phosphorus Magnesium Total Bilirubin AST ALT Alkaline Phosphatase Troponin I 0.58 H Total Protein Albumin 01/27/19 01/27/19 05:40 05:40 WBC RBC Hgb Hct MCV MCH MCHC RDW Plt Count MPV Absolute Neuts (auto) Neutrophils % Lymphocytes % Monocytes % Eosinophils % Basophils % Nucleated RBC % PT with INR 14.20 H INR 1.20 H PTT (Actin FS) 41.7 H Sodium 142 Potassium 4.0 Chloride 110 H Carbon Dioxide 27 Anion Gap 6 L BUN 12.3 Creatinine 1.0 Est GFR (CKD-EPI)AfAm 84.36 Est GFR (CKD-EPI)NonAf 72.78 Random Glucose 83 Calcium 8.3 L Phosphorus 3.3 Magnesium 2.4 Total Bilirubin 0.9 AST 13 L ALT 18 Alkaline Phosphatase 103 Troponin I Total Protein 5.7 L Albumin 3.4 ASSESSMENT/PLAN: Bilateral Pulmonary Embolism: at present hemodynamically stable without evidence of Right Heart Strain Syncope HTN Hx of Non-Hodgkins Lymphoma AC with Lovenox: Can transition to DOAC The patient does not meet the criteria for Systemic or Catheter Directed Thrombolysis O2 to maintain saturation Cardiac Telemetry monitoring Dr Crouch
--- NOTE | 2019-01-27 17:25 | PN ---
Physical Exam: SUBJECTIVE: Patient seen and examined Pt is a 78 y/o M (B. [facility]. [facility]) with a PMH of HTN, HLD, and Lymphoma ( diagnosed 2000 now in remission) presented w/ shortness of breath is found to have a saddle embolus on CT is admitted for PE treatment. OBJECTIVE: Vital Signs Period Temp Pulse Resp BP Sys/Shabazz Pulse Ox Last 24 Hr 97.9 F-97.9 F 53-64 14-20 96-145/48-79 100-100 GENERAL: The patient is awake, alert, and fully oriented, in no acute distress. EYES: PERRL, extraocular movements intact, ENT: clear without exudates, moist mucous membranes. NECK: supple. LUNGS: Breath sounds equal, clear to auscultation bilaterally, no wheezes, no crackles, HEART: Regular rate and rhythm, S1, S2 without murmur, rub or gallop. ABDOMEN: Soft, nontender, nondistended, normoactive bowel sounds, no guarding, EXTREMITIES: 2+ pulses, warm, well-perfused, no edema. Laboratory Results - last 24 hr CBC,CMP WBC 5.2 K/mm3 (4.0-10.0) 01/27/19 05:40 Corrected WBC (auto) Cancelled 01/26/19 02:35 RBC 4.55 M/mm3 (4.00-5.60) 01/27/19 05:40 Hgb 12.3 GM/dL (11.7-16.9) 01/27/19 05:40 Hct 37.3 % (35.4-49) 01/27/19 05:40 MCV 81.9 fl (80-96) 01/27/19 05:40 MCH 27.1 pg (25.7-33.7) 01/27/19 05:40 MCHC 33.1 g/dl (32.0-35.9) 01/27/19 05:40 RDW 14.7 % (11.9-15.9) 01/27/19 05:40 Plt Count 115 K/MM3 (134-434) L 01/27/19 05:40 MPV 9.3 fl (7.5-11.1) D 01/27/19 05:40 Absolute Neuts (auto) 1.9 K/mm3 (1.5-8.0) 01/27/19 05:40 Absolute Lymphs (auto) Cancelled 01/26/19 02:35 Absolute Monos (auto) Cancelled 01/26/19 02:35 Absolute Eos (auto) Cancelled 01/26/19 02:35 Absolute Basos (auto) Cancelled 01/26/19 02:35 Add Manual Diff Cancelled 01/26/19 02:35 Neutrophils % 37.8 % (42.8-82.8) L D 01/27/19 05:40 Lymphocytes % 48.8 % (8-40) H D 01/27/19 05:40 Monocytes % 11.2 % (3.8-10.2) H 01/27/19 05:40 Eosinophils % 1.8 % (0-4.5) 01/27/19 05:40 Basophils % 0.4 % (0-2.0) 01/27/19 05:40 Nucleated RBC % 0 % (0-0) 01/27/19 05:40 Platelet Estimate Cancelled 01/26/19 02:35 Platelet Comment Cancelled 01/26/19 02:35 Normal RBC Morphology Cancelled 01/26/19 02:35 Sodium 142 mmol/L (136-145) 01/27/19 05:40 Potassium 4.0 mmol/L (3.5-5.1) 01/27/19 05:40 Chloride 110 mmol/L (98-107) H 01/27/19 05:40 Carbon Dioxide 27 mmol/L (21-32) 01/27/19 05:40 Anion Gap 6 MMOL/L (8-16) L 01/27/19 05:40 BUN 12.3 mg/dL (7-18) 01/27/19 05:40 Creatinine 1.0 mg/dL (0.55-1.3) 01/27/19 05:40 Est GFR (CKD-EPI)AfAm 84.36 01/27/19 05:40 Est GFR (CKD-EPI)NonAf 72.78 01/27/19 05:40 Random Glucose 83 mg/dL (74-106) 01/27/19 05:40 Calcium 8.3 mg/dL (8.5-10.1) L 01/27/19 05:40 Phosphorus 3.3 mg/dL (2.5-4.9) 01/27/19 05:40 Magnesium 2.4 mg/dL (1.8-2.4) 01/27/19 05:40 Total Bilirubin 0.9 mg/dL (0.2-1) 01/27/19 05:40 AST 13 U/L (15-37) L 01/27/19 05:40 ALT 18 U/L (13-61) 01/27/19 05:40 Alkaline Phosphatase 103 U/L (45-117) 01/27/19 05:40 Creatine Kinase 91 U/L (26-308) 01/26/19 08:35 Troponin I 0.58 ng/ml (0.00-0.05) H 01/26/19 13:26 B-Natriuretic Peptide 43.8 pg/ml (5-450) 01/26/19 02:35 Total Protein 5.7 g/dl (6.4-8.2) L 01/27/19 05:40 Albumin 3.4 g/dl (3.4-5.0) 01/27/19 05:40 Active Medications Current Medications Enoxaparin Sodium (Lovenox -) 90 mg SQ BID [facility] Last Admin: 01/27/19 10:29 Dose: 90 mg Sodium Chloride (Normal Saline -) 1,000 mls @ 75 mls/hr IV ASDIR [facility] Last Admin: 01/26/19 20:10 Dose: 75 mls/hr Home Medications Medication Instructions Recorded Amlodipine Besylate 5 mg PO DAILY 01/27/19 Atorvastatin Ca [Lipitor] 40 mg PO DAILY 01/27/19 Last Vital Signs Temp Pulse Resp BP Pulse Ox 97.9 F 61 14 145/64 100 01/27/19 06:00 01/27/19 16:00 01/27/19 16:00 01/27/19 16:00 01/27/19 09:45 ASSESSMENT/PLAN: Pt is a 78 y/o M pmh of HTN, HLD, and Lymphoma (diagnosed 2000 now in remission ) presented w/ shortness of breath is found to have a saddle embolus on CT is admitted for PE treatment. #SOB 2/[address]: Bilateral PE w/ Saddle pulmonary embolus extending from the right main pulmonary artery into the left main pulmonary artery. D-Dimer 62618 Lovenox 90 sq BID Pt clinical stable Coumadin will start tonight Lovenox for 5 days (today is day 2), bridge to coumadin Pt's daughter agrees to f/u at resident clinic #HTN hold- amlodipine home med #HLD cont lipitor #DVT Lovenox FEN: monitor lytes, sodium controlled diet, IVF ns 77 Dispo: cont monitoring, extermination inspector AC once d/c Visit type - Emergency Visit Emergency Visit: Yes ED Registration Date: 01/26/19 Care time: The patient presented to the Emergency Department on the above date and was hospitalized for further evaluation of their emergent condition. - New Patient This patient is new to me today: Yes Date on this admission: 01/28/19 - Critical Care Critical Care patient: No - Discharge Referral Referred to [facility] No ATTENDING PHYSICIAN STATEMENT I saw and evaluated the patient. I reviewed the resident's note and discussed the case with the resident. I agree with the resident's findings and plan as documented. SUBJECTIVE: OBJECTIVE: ASSESSMENT AND PLAN:
[2019-01-27] MEDS ORDERED: WARFARIN NA 7.5 MG TABLET (FP) PO ONE (18:10)
--- NOTE | 2019-01-27 18:17 | PN ---
Teaching Attending Note Name of Resident: Ludmila Arteaga ATTENDING PHYSICIAN STATEMENT I saw and evaluated the patient. I reviewed the resident's note and discussed the case with the resident. I agree with the resident's findings and plan as documented. SUBJECTIVE: No fever or chills. No JULIEN . No pain , No SOB . NO CP OBJECTIVE: NAd, awake, alert, cooperative. CV: RRR, no MRG Lungs: CTAB Ext: No edema or erythema on upper or lower extremities. ASSESSMENT AND PLAN: Mr. Sandy is a pleasant 78 y/o gentleman with h/o HLP, HTN, and Non Hodgkin's lymphoma s/p chemo in 2010 , now in remission who presented with sudden onset SOb and syncope 1- Saddle PE with b/l emboli. stable , no tachydardia or hypotension - cont lovenox - AC after dc was d/w him and his daughter . he agrees and accepts the risk of bleeding. due to his insurance situation , NOACS and LOvenox will not be covered and will not be afforded by family - will start coumadin tonight - will need to remain on LOvenox for at least 5 days ( day 2 today ) . When therapeutic INR , then will need overlap of at least 4 hour on lovenox and coumadin - INR in am - has no PZCP , so will genee f/u with resident clinic for at least the first appointment - age appropriate cancer screening and hypercoagulable w/u as out pt - dc IVF 2- H/o HTN: monitor BP closely for now. 3- H/o HL his pharmacy at [facility] was called. they will not accept out side scripts. [place] [facility] [place]
[2019-01-27] MEDS: NYSTATIN 100,000 UNIT/GM TOPICAL CREAM 15 GM TUBE TP SCH (22:40)
[2019-01-28 07:05] LABS: HEMATOCRIT 39.7 % (35.4-49); HEMOGLOBIN 13.1 GM/dL (11.7-16.9); MCHC 32.9 g/dl (32.0-35.9); MEAN CELL VOLUME 82.1 fl (80-96); MEAN PLT VOLUME 8.8 fl (7.5-11.1); PLATELET COUNT 114 K/MM3 (134-434); RBC 4.83 M/mm3 (4.00-5.60); RDW 14.7 % (11.9-15.9)
[2019-01-28 07:28] LABS: INR 1.18 (0.83-1.09); PROTHROMBIN TIME (PATIENT) 13.9 SEC (9.7-13.0)
[2019-01-28 07:31] LABS: ACTIVATED PTT 45.6 SECONDS (25.2-36.5)
[2019-01-28 07:49] LABS: BLOOD UREA NITROGEN 10.8 mg/dL (7-18); CALCIUM 8.7 mg/dL (8.5-10.1); POTASSIUM 4.2 mmol/L (3.5-5.1)
--- NOTE | 2019-01-28 08:21 | PN ---
Teaching Attending Note Name of Resident: Harmeet Montilla ATTENDING PHYSICIAN STATEMENT I saw and evaluated the patient. I reviewed the resident's note and discussed the case with the resident. I agree with the resident's findings and plan as documented. SUBJECTIVE: Patient is feeling better with no acute distress, denies any shortness of breath. Vital Signs Temperature 98.3 F 01/28/19 05:41 Pulse Rate 55 L 01/28/19 05:41 Respiratory Rate 13 01/28/19 05:41 Blood Pressure 147/61 01/28/19 05:41 O2 Sat by Pulse Oximetry (%) 99 01/27/19 21:04 GENERAL: The patient is awake, alert, and fully oriented, in no acute distress. HEAD: Normal with no signs of trauma. EYES: PERRL, extraocular movements intact, sclera anicteric, conjunctiva clear. ENT: Ears normal, oropharynx clear without exudates, moist mucous membranes. NECK: Trachea midline, full range of motion, supple. LUNGS: Breath sounds equal, clear to auscultation bilaterally, no wheezes, no crackles, no accessory muscle use. HEART: Regular rate and rhythm, S1, S2 without murmur, rub or gallop. ABDOMEN: Soft, nontender, nondistended, normoactive bowel sounds, no guarding, no rebound, no hepatosplenomegaly, no masses. EXTREMITIES: 2+ pulses, warm, well-perfused, no edema. NEUROLOGICAL: Cranial nerves II through XII grossly intact. Normal speech, gait not observed. PSYCH: Normal mood, normal affect. SKIN: Warm, dry, normal turgor, no rashes or lesions noted CBCD WBC 5.0 K/mm3 (4.0-10.0) 01/28/19 05:42 RBC 4.83 M/mm3 (4.00-5.60) 01/28/19 05:42 Hgb 13.1 GM/dL (11.7-16.9) 01/28/19 05:42 Hct 39.7 % (35.4-49) 01/28/19 05:42 MCV 82.1 fl (80-96) 01/28/19 05:42 MCHC 32.9 g/dl (32.0-35.9) 01/28/19 05:42 RDW 14.7 % (11.9-15.9) 01/28/19 05:42 Plt Count 114 K/MM3 (134-434) L 01/28/19 05:42 MPV 8.8 fl (7.5-11.1) 01/28/19 05:42 CMP Sodium 142 mmol/L (136-145) 01/28/19 05:40 Potassium 4.2 mmol/L (3.5-5.1) 01/28/19 05:40 Chloride 109 mmol/L (98-107) H 01/28/19 05:40 Carbon Dioxide 26 mmol/L (21-32) 01/28/19 05:40 Anion Gap 7 MMOL/L (8-16) L 01/28/19 05:40 BUN 10.8 mg/dL (7-18) 01/28/19 05:40 Creatinine 1.0 mg/dL (0.55-1.3) 01/28/19 05:40 Random Glucose 90 mg/dL (74-106) 01/28/19 05:40 Calcium 8.7 mg/dL (8.5-10.1) 01/28/19 05:40 Total Bilirubin 0.9 mg/dL (0.2-1) 01/27/19 05:40 AST 13 U/L (15-37) L 01/27/19 05:40 ALT 18 U/L (13-61) 01/27/19 05:40 Alkaline Phosphatase 103 U/L (45-117) 01/27/19 05:40 Total Protein 5.7 g/dl (6.4-8.2) L 01/27/19 05:40 Albumin 3.4 g/dl (3.4-5.0) 01/27/19 05:40 CARDIAC ENZYMES Creatine Kinase 91 U/L (26-308) 01/26/19 08:35 Troponin I 0.58 ng/ml (0.00-0.05) H 01/26/19 13:26 Current Medications Generic Name Dose Route Start Last Admin Trade Name Freq PRN Reason Stop Dose Admin Atorvastatin Calcium 40 mg 01/28/19 10:00 Lipitor - PO DAILY [facility] Enoxaparin Sodium 90 mg 01/26/19 22:00 01/27/19 22:41 Lovenox - SQ 90 mg BID [facility] Administration Nystatin 1 applic 01/27/19 22:00 01/27/19 22:40 Mycostatin Cream - TP 1 applic BID [facility] Administration Senna 1 tab 01/28/19 10:00 Senna - PO BID [facility] Warfarin Sodium 7.5 mg 01/28/19 18:00 Coumadin - PO DAILY@1800 [facility] Home Medications Medication Instructions Recorded Amlodipine Besylate 5 mg PO DAILY 01/27/19 Atorvastatin Ca [Lipitor] 40 mg PO DAILY 01/27/19 Lung CTA : Extensive b/l emboli with saddle embolus. Upper abdomen: hepatic cysts and cholelithiasis Renal cysts: inhomonegenois enhancement possible pyelonephritis ECHo: EJF 55-60%, mild AR, rest normal Assessement and plan: Patient is a 78yo male with PMHx of HLP, HTN, and NH lymphoma s/p chemo in 2010 , now in remission who presented with sudden onset SOb and syncope. # Saddle PE with b/l embolism, stable without evidence of Right Heart Strain. On lovenox continue ,keep O2 sat. above 93%, continue coumadin , once therapeutic , patient can be discharged home. When therapeutic INR , then will need overlap of at least 4 hour on lovenox and coumadin - daily INR , f/u with resident clinic for follow up since has no PMD. as per pulmonary ,the patient does not meet the criteria for Systemic or Catheter Directed Thrombolysis. Hx of NH's Lymphoma: age appropriate cancer screening and hypercoagulable w/u as out pt # H/o HTN: monitor BP closely for now. # H/o Non-Hodgkins Lymphoma his pharmacy at an [facility] was called. they will not accept out side scripts. [place] [facility] [place] Px: Coumadin, Lovenox
[2019-01-28] MEDS: ENOXAPARIN NA (PORCINE) 100 MG/1 ML DISP.SYRIN SQ SCH ×2 (10:17→21:39)
[2019-01-28] MEDS: ATORVASTATIN CA 40 MG TABLET (FP) PO SCH (10:17)
[2019-01-28] MEDS: NYSTATIN 100,000 UNIT/GM TOPICAL CREAM 15 GM TUBE TP SCH ×2 (10:18→21:40)
[2019-01-28] MEDS: SENNOSIDES 8.6MG TABLET (FP) PO SCH ×2 (10:20→21:40)
--- NOTE | 2019-01-28 13:29 | PN ---
Progress Note (short form) - Note Progress Note: PULMONARY Denies shortness of breath or chest pain. Saturating 99% on room air. Vital Signs Period Temp Pulse Resp BP Sys/Shabazz Pulse Ox Last 24 Hr 97.8 F-98.3 F 50-67 13-18 134-154/54-74 99-99 Gen: NAD at rest Heart: RRR Lung: decreased breath sounds at the bases Abd: soft, nontender Ext: no edema CBC, BMP 01/28/19 05:42 01/28/19 05:40 INR, PTT INR 1.18 (0.83-1.09) H 01/28/19 05:40 Active Medications Atorvastatin Calcium (Lipitor -) 40 mg PO DAILY [facility] Last Admin: 01/28/19 10:17 Dose: 40 mg Enoxaparin Sodium (Lovenox -) 90 mg SQ BID [facility] Last Admin: 01/28/19 10:17 Dose: 90 mg Nystatin (Mycostatin Cream -) 1 applic TP BID [facility] Last Admin: 01/28/19 10:18 Dose: 1 applic Senna (Senna -) 1 tab PO BID [facility] Last Admin: 01/28/19 10:20 Dose: 1 tab Warfarin Sodium (Coumadin -) 10 mg PO DAILY@1800 [facility] A/P Acute Pulmonary Emboli Syncope RLE DVT HTN Hyperlipidemia h/o Lymphoma - continue anticoagulation to INR 2-3 - O2 as needed - age appropriate cancer screening as outpt - can d/c telemetry
--- NOTE | 2019-01-28 14:53 | PN ---
Physical Exam: SUBJECTIVE: Patient seen and examined Pt is a 78 y/o M (B. [facility]. [facility]) with a PMH of HTN, HLD, and Lymphoma ( diagnosed 2000 now in remission) presented w/ shortness of breath is found to have a saddle embolus on CT is admitted for PE treatment. Today pt is afebrile , asymptomatic and has no other c/o. He is in good state of health. He has passed gas but did not move his bowels yet. Denies f/c/n/v/d/sob/chest pain. OBJECTIVE: Vital Signs Period Temp Pulse Resp BP Sys/Shabazz Pulse Ox Last 24 Hr 97.8 F-99.2 F 50-67 13-18 134-154/54-74 99-99 GENERAL: The patient is awake, alert, and fully oriented, in no acute distress. EYES: PERRL, extraocular movements intact, ENT: clear without exudates, moist mucous membranes. NECK: supple. LUNGS: Breath sounds equal, clear to auscultation bilaterally, no wheezes, no crackles, HEART: Regular rate and rhythm, S1, S2 without murmur, rub or gallop. ABDOMEN: Soft, nontender, nondistended, normoactive bowel sounds, no guarding, EXTREMITIES: 2+ pulses, warm, well-perfused, no edema. Laboratory Results - last 24 hr 01/28/19 01/28/19 01/28/19 05:40 05:40 05:42 WBC 5.0 RBC 4.83 Hgb 13.1 Hct 39.7 MCV 82.1 MCH 27.0 MCHC 32.9 RDW 14.7 Plt Count 114 L MPV 8.8 PT with INR 13.90 H INR 1.18 H PTT (Actin FS) 45.6 H Sodium 142 Potassium 4.2 Chloride 109 H Carbon Dioxide 26 Anion Gap 7 L BUN 10.8 Creatinine 1.0 Est GFR (CKD-EPI)AfAm 84.36 Est GFR (CKD-EPI)NonAf 72.78 Random Glucose 90 Calcium 8.7 Active Medications Current Medications Atorvastatin Calcium (Lipitor -) 40 mg PO DAILY [facility] Last Admin: 01/28/19 10:17 Dose: 40 mg Enoxaparin Sodium (Lovenox -) 90 mg SQ BID [facility] Last Admin: 01/28/19 10:17 Dose: 90 mg Nystatin (Mycostatin Cream -) 1 applic TP BID [facility] Last Admin: 01/28/19 10:18 Dose: 1 applic Senna (Senna -) 1 tab PO BID [facility] Last Admin: 01/28/19 10:20 Dose: 1 tab Warfarin Sodium (Coumadin -) 10 mg PO DAILY@1800 [facility] Home Medications Medication Instructions Recorded Amlodipine Besylate 5 mg PO DAILY 01/27/19 Atorvastatin Ca [Lipitor] 40 mg PO DAILY 01/27/19 ASSESSMENT/PLAN: Pt is a 78 y/o M pmh of HTN, HLD, and Lymphoma (diagnosed 2000 now in remission ) presented w/ shortness of breath is found to have a saddle embolus on CT is admitted for PE treatment. #SOB 2/[address]: Bilateral PE w/ Saddle pulmonary embolus extending from the right main pulmonary artery into the left main pulmonary artery. Lovenox 90 sq BID Coumadin 10 mg started today Lovenox for 5 days (today is day 3), bridge to coumadin Pt's daughter agrees to f/u at resident clinic Discussed the need to f/u outpt age appropriate screening and hypercoag work up #HTN hold- amlodipine home med #HLD cont lipitor #Non-Hodgkins Lymphoma f/u outpt #DVT Lovenox FEN: monitor lytes, sodium controlled diet, IVF ns 77 Dispo: cont monitoring, fdc AC once d/c Visit type - Emergency Visit Emergency Visit: Yes ED Registration Date: 01/26/19 Care time: The patient presented to the Emergency Department on the above date and was hospitalized for further evaluation of their emergent condition. - New Patient This patient is new to me today: Yes Date on this admission: 01/29/19 - Critical Care Critical Care patient: No - Discharge Referral Referred to [facility] Med P.C.: No ATTENDING PHYSICIAN STATEMENT I saw and evaluated the patient. I reviewed the resident's note and discussed the case with the resident. I agree with the resident's findings and plan as documented. SUBJECTIVE: OBJECTIVE: ASSESSMENT AND PLAN:
[2019-01-28] MEDS: WARFARIN NA 5 MG TABLET (UD) PO SCH (17:39)
[2019-01-28] MEDS ORDERED: WARFARIN NA 7.5 MG TABLET (FP) PO SCH (18:00)
[2019-01-28] MEDS ORDERED: PT OWN MED DRAWER 7, Y5N ONE (21:09)
[2019-01-29 07:05] LABS: HEMATOCRIT 38.6 % (35.4-49); HEMOGLOBIN 12.9 GM/dL (11.7-16.9); MCH 26.9 pg (25.7-33.7); MCHC 33.4 g/dl (32.0-35.9); MEAN CELL VOLUME 80.4 fl (80-96); MEAN PLT VOLUME 8.4 fl (7.5-11.1); PLATELET COUNT 123 K/MM3 (134-434); RDW 14.5 % (11.9-15.9); WHITE BLOOD COUNT 4.9 K/mm3 (4.0-10.0)
[2019-01-29 07:15] LABS: INR 1.3 (0.83-1.09); PROTHROMBIN TIME (PATIENT) 15.4 SEC (9.7-13.0)
[2019-01-29 07:19] LABS: BLOOD UREA NITROGEN 10.6 mg/dL (7-18); CALCIUM 8.8 mg/dL (8.5-10.1); CREATININE 1.1 mg/dL (0.55-1.3); POTASSIUM 4.2 mmol/L (3.5-5.1)
[2019-01-29] MEDS ORDERED: PT OWN MED DRAWER 7, Y5N ONE ×2 (08:49→21:33)
[2019-01-29] MEDS: ENOXAPARIN NA (PORCINE) 100 MG/1 ML DISP.SYRIN SQ SCH ×2 (09:07→21:38)
[2019-01-29] MEDS: NYSTATIN 100,000 UNIT/GM TOPICAL CREAM 15 GM TUBE TP SCH ×2 (09:08→21:39)
[2019-01-29] MEDS: SENNOSIDES 8.6MG TABLET (FP) PO SCH ×2 (09:08→21:39)
[2019-01-29] MEDS: ATORVASTATIN CA 40 MG TABLET (FP) PO SCH (09:08)
--- NOTE | 2019-01-29 11:54 | PN ---
Physical Exam: SUBJECTIVE: Patient seen and examined Today pt is afebrile, asymptomatic and has no other c/o. He is in good state of health. He has passed gas and moved his bowels today. Pt has concerns about his financial situation. Will notify social work. Denies f/c/n/v/d/sob/chest pain. OBJECTIVE: Vital Signs Period Temp Pulse Resp BP Sys/Shabazz Pulse Ox Last 24 Hr 97.6 F-99.2 F 54-69 15-18 130-148/67-78 99 GENERAL: The patient is awake, alert, and fully oriented, in no acute distress. EYES: PERRL, extraocular movements intact, ENT: clear without exudates, moist mucous membranes. NECK: supple. LUNGS: Breath sounds equal, clear to auscultation bilaterally, no wheezes, no crackles, HEART: Regular rate and rhythm, S1, S2 without murmur, rub or gallop. ABDOMEN: Soft, nontender, nondistended, normoactive bowel sounds, no guarding, EXTREMITIES: 2+ pulses, warm, well-perfused, no edema. Laboratory Results - last 24 hr CBC,CMP WBC 4.9 K/mm3 (4.0-10.0) 01/29/19 05:38 Corrected WBC (auto) Cancelled 01/26/19 02:35 RBC 4.80 M/mm3 (4.00-5.60) 01/29/19 05:38 Hgb 12.9 GM/dL (11.7-16.9) 01/29/19 05:38 Hct 38.6 % (35.4-49) 01/29/19 05:38 MCV 80.4 fl (80-96) 01/29/19 05:38 MCH 26.9 pg (25.7-33.7) 01/29/19 05:38 MCHC 33.4 g/dl (32.0-35.9) 01/29/19 05:38 RDW 14.5 % (11.9-15.9) 01/29/19 05:38 Plt Count 123 K/MM3 (134-434) L 01/29/19 05:38 MPV 8.4 fl (7.5-11.1) 01/29/19 05:38 Absolute Neuts (auto) 1.9 K/mm3 (1.5-8.0) 01/27/19 05:40 Absolute Lymphs (auto) Cancelled 01/26/19 02:35 Absolute Monos (auto) Cancelled 01/26/19 02:35 Absolute Eos (auto) Cancelled 01/26/19 02:35 Absolute Basos (auto) Cancelled 01/26/19 02:35 Add Manual Diff Cancelled 01/26/19 02:35 Neutrophils % 37.8 % (42.8-82.8) L D 01/27/19 05:40 Lymphocytes % 48.8 % (8-40) H D 01/27/19 05:40 Monocytes % 11.2 % (3.8-10.2) H 01/27/19 05:40 Eosinophils % 1.8 % (0-4.5) 01/27/19 05:40 Basophils % 0.4 % (0-2.0) 01/27/19 05:40 Nucleated RBC % 0 % (0-0) 01/27/19 05:40 Platelet Estimate Cancelled 01/26/19 02:35 Platelet Comment Cancelled 01/26/19 02:35 Normal RBC Morphology Cancelled 01/26/19 02:35 Sodium 140 mmol/L (136-145) 01/29/19 05:38 Potassium 4.2 mmol/L (3.5-5.1) 01/29/19 05:38 Chloride 105 mmol/L (98-107) 01/29/19 05:38 Carbon Dioxide 30 mmol/L (21-32) 01/29/19 05:38 Anion Gap 4 MMOL/L (8-16) L 01/29/19 05:38 BUN 10.6 mg/dL (7-18) 01/29/19 05:38 Creatinine 1.1 mg/dL (0.55-1.3) 01/29/19 05:38 Est GFR (CKD-EPI)AfAm 75.18 01/29/19 05:38 Est GFR (CKD-EPI)NonAf 64.86 01/29/19 05:38 Random Glucose 89 mg/dL (74-106) 01/29/19 05:38 Calcium 8.8 mg/dL (8.5-10.1) 01/29/19 05:38 Phosphorus 3.3 mg/dL (2.5-4.9) 01/27/19 05:40 Magnesium 2.4 mg/dL (1.8-2.4) 01/27/19 05:40 Total Bilirubin 0.9 mg/dL (0.2-1) 01/27/19 05:40 AST 13 U/L (15-37) L 01/27/19 05:40 ALT 18 U/L (13-61) 01/27/19 05:40 Alkaline Phosphatase 103 U/L (45-117) 01/27/19 05:40 Creatine Kinase 91 U/L (26-308) 01/26/19 08:35 Troponin I 0.58 ng/ml (0.00-0.05) H 01/26/19 13:26 B-Natriuretic Peptide 43.8 pg/ml (5-450) 01/26/19 02:35 Total Protein 5.7 g/dl (6.4-8.2) L 01/27/19 05:40 Albumin 3.4 g/dl (3.4-5.0) 01/27/19 05:40 Active Medications Current Medications Atorvastatin Calcium (Lipitor -) 40 mg PO DAILY [facility] Last Admin: 01/29/19 09:08 Dose: 40 mg Enoxaparin Sodium (Lovenox -) 90 mg SQ BID [facility] Last Admin: 01/29/19 09:07 Dose: 90 mg Nystatin (Mycostatin Cream -) 1 applic TP BID [facility] Last Admin: 01/29/19 09:08 Dose: 1 applic Senna (Senna -) 1 tab PO BID [facility] Last Admin: 01/29/19 09:08 Dose: 1 tab Warfarin Sodium (Coumadin -) 10 mg PO DAILY@1800 [facility] Last Admin: 01/28/19 17:39 Dose: 10 mg Home Medications Medication Instructions Recorded Amlodipine Besylate 5 mg PO DAILY 01/27/19 Atorvastatin Ca [Lipitor] 40 mg PO DAILY 01/27/19 ASSESSMENT/PLAN: Pt is a 78 y/o M pmh of HTN, HLD, and Lymphoma (diagnosed 2000 now in remission ) presented w/ shortness of breath is found to have a saddle embolus on CT is admitted for PE treatment. #SOB 2/[address]: Bilateral PE w/ Saddle pulmonary embolus extending from the right main pulmonary artery into the left main pulmonary artery. Lovenox 90 sq BID Coumadin 10 mg started today Lovenox for 5 days (today is day 4), bridge to coumadin Pt's daughter agrees to f/u at resident clinic Discussed the need to f/u outpt age appropriate screening and hypercoag work up #HTN hold- amlodipine home med #HLD cont lipitor #Non-Hodgkins Lymphoma f/u outpt #DVT Lovenox FEN: monitor lytes, sodium controlled diet, IVF ns 77 Dispo: cont monitoring, care home AC once d/c Visit type - Emergency Visit Emergency Visit: Yes ED Registration Date: 01/26/19 Care time: The patient presented to the Emergency Department on the above date and was hospitalized for further evaluation of their emergent condition. - New Patient This patient is new to me today: Yes Date on this admission: 01/31/19 - Critical Care Critical Care patient: No - Discharge Referral Referred to [facility] Med P.C.: No ATTENDING PHYSICIAN STATEMENT I saw and evaluated the patient. I reviewed the resident's note and discussed the case with the resident. I agree with the resident's findings and plan as documented. SUBJECTIVE: OBJECTIVE: ASSESSMENT AND PLAN:
--- NOTE | 2019-01-29 12:40 | PN ---
Progress Note (short form) - Note Progress Note: Resting in NAD. No CP or SOB. Breathing feels better. No acute events overnight. Intake & Output 01/26/19 01/27/19 01/28/19 01/29/19 23:59 23:59 23:59 23:59 Intake Total 225 2150 970 Output Total 800 2150 Balance 225 1350 -1180 Weight 200 lb Last Vital Signs Temp Pulse Resp BP Pulse Ox 98 F 57 L 16 148/69 99 01/29/19 06:00 01/29/19 06:00 01/29/19 06:00 01/29/19 06:00 01/28/19 19:32 Active Medications Atorvastatin Calcium (Lipitor -) 40 mg PO DAILY [facility] Last Admin: 01/29/19 09:08 Dose: 40 mg Enoxaparin Sodium (Lovenox -) 90 mg SQ BID [facility] Last Admin: 01/29/19 09:07 Dose: 90 mg Nystatin (Mycostatin Cream -) 1 applic TP BID [facility] Last Admin: 01/29/19 09:08 Dose: 1 applic Senna (Senna -) 1 tab PO BID [facility] Last Admin: 01/29/19 09:08 Dose: 1 tab Warfarin Sodium (Coumadin -) 10 mg PO DAILY@1800 [facility] Last Admin: 01/28/19 17:39 Dose: 10 mg GENERAL: Awake and alert, NAD HEAD: Normal with no signs of trauma. EYES: Pupils equal, round and reactive to light, extraocular movements intact, sclera anicteric EARS, NOSE, THROAT: oropharynx clear without exudates. Moist mucous membranes. NECK: supple without lymphadenopathy, JVD, or masses. LUNGS: Clear to auscultation bilaterally HEART: S1S2, RRR ABDOMEN: Soft, nontender, not distended, normoactive bowel sounds UPPER EXTREMITIES: 2+ pulses, warm, well-perfused. No peripheral edema. NEUROLOGICAL: Non-focal Laboratory Results - last 24 hr 01/29/19 01/29/19 01/29/19 05:38 05:38 05:38 WBC 4.9 RBC 4.80 Hgb 12.9 Hct 38.6 MCV 80.4 MCH 26.9 MCHC 33.4 RDW 14.5 Plt Count 123 L MPV 8.4 PT with INR 15.40 H INR 1.30 H PTT (Actin FS) 46.0 H Sodium 140 Potassium 4.2 Chloride 105 Carbon Dioxide 30 Anion Gap 4 L BUN 10.6 Creatinine 1.1 Est GFR (CKD-EPI)AfAm 75.18 Est GFR (CKD-EPI)NonAf 64.86 Random Glucose 89 Calcium 8.8 ASSESSMENT/PLAN: Bilateral Pulmonary Embolism: at present hemodynamically stable without evidence of Right Heart Strain Syncope HTN Hx of Non-Hodgkins Lymphoma AC with Lovenox / Coumadin O2 to maintain saturation DC planning Dr Crouch
--- NOTE | 2019-01-29 14:53 | PN ---
Teaching Attending Note Name of Resident: Harmeet Montilla ATTENDING PHYSICIAN STATEMENT I saw and evaluated the patient. I reviewed the resident's note and discussed the case with the resident. I agree with the resident's findings and plan as documented. SUBJECTIVE: Patient is feeling better with no acute distress. Vital Signs Temperature 98.7 F 01/29/19 14:00 Pulse Rate 64 01/29/19 14:00 Respiratory Rate 19 01/29/19 14:00 Blood Pressure 160/74 01/29/19 14:00 O2 Sat by Pulse Oximetry (%) 99 01/29/19 09:00 GENERAL: The patient is awake, alert, and fully oriented, in no acute distress. HEAD: Normal with no signs of trauma. EYES: PERRL, extraocular movements intact, sclera anicteric, conjunctiva clear. ENT: Ears normal, oropharynx clear without exudates, moist mucous membranes. NECK: Trachea midline, full range of motion, supple. LUNGS: Breath sounds equal, clear to auscultation bilaterally, no wheezes, no crackles, no accessory muscle use. HEART: Regular rate and rhythm, S1, S2 without murmur, rub or gallop. ABDOMEN: Soft, nontender, nondistended, normoactive bowel sounds, no guarding, no rebound, no hepatosplenomegaly, no masses. EXTREMITIES: 2+ pulses, warm, well-perfused, no edema. NEUROLOGICAL: Cranial nerves II through XII grossly intact. Normal speech, gait not observed. PSYCH: Normal mood, normal affect. SKIN: Warm, dry, normal turgor, no rashes or lesions noted CBCD WBC 4.9 K/mm3 (4.0-10.0) 01/29/19 05:38 RBC 4.80 M/mm3 (4.00-5.60) 01/29/19 05:38 Hgb 12.9 GM/dL (11.7-16.9) 01/29/19 05:38 Hct 38.6 % (35.4-49) 01/29/19 05:38 MCV 80.4 fl (80-96) 01/29/19 05:38 MCHC 33.4 g/dl (32.0-35.9) 01/29/19 05:38 RDW 14.5 % (11.9-15.9) 01/29/19 05:38 Plt Count 123 K/MM3 (134-434) L 01/29/19 05:38 MPV 8.4 fl (7.5-11.1) 01/29/19 05:38 CMP Sodium 140 mmol/L (136-145) 01/29/19 05:38 Potassium 4.2 mmol/L (3.5-5.1) 01/29/19 05:38 Chloride 105 mmol/L (98-107) 01/29/19 05:38 Carbon Dioxide 30 mmol/L (21-32) 01/29/19 05:38 Anion Gap 4 MMOL/L (8-16) L 01/29/19 05:38 BUN 10.6 mg/dL (7-18) 01/29/19 05:38 Creatinine 1.1 mg/dL (0.55-1.3) 01/29/19 05:38 Random Glucose 89 mg/dL (74-106) 01/29/19 05:38 Calcium 8.8 mg/dL (8.5-10.1) 01/29/19 05:38 Total Bilirubin 0.9 mg/dL (0.2-1) 01/27/19 05:40 AST 13 U/L (15-37) L 01/27/19 05:40 ALT 18 U/L (13-61) 01/27/19 05:40 Alkaline Phosphatase 103 U/L (45-117) 01/27/19 05:40 Total Protein 5.7 g/dl (6.4-8.2) L 01/27/19 05:40 Albumin 3.4 g/dl (3.4-5.0) 01/27/19 05:40 CARDIAC ENZYMES Creatine Kinase 91 U/L (26-308) 01/26/19 08:35 Troponin I 0.58 ng/ml (0.00-0.05) H 01/26/19 13:26 Current Medications Generic Name Dose Route Start Last Admin Trade Name Naz PRN Reason Stop Dose Admin Atorvastatin Calcium 40 mg 01/28/19 10:00 01/29/19 09:08 Lipitor - PO 40 mg DAILY [facility] Administration Enoxaparin Sodium 90 mg 01/26/19 22:00 01/29/19 09:07 Lovenox - SQ 90 mg BID [facility] Administration Nystatin 1 applic 01/27/19 22:00 01/29/19 09:08 Mycostatin Cream - TP 1 applic BID [facility] Administration Senna 1 tab 01/28/19 10:00 01/29/19 09:08 Senna - PO 1 tab BID [facility] Administration Warfarin Sodium 10 mg 01/28/19 18:00 01/28/19 17:39 Coumadin - PO 10 mg DAILY@1800 [facility] Administration Home Medications Medication Instructions Recorded Amlodipine Besylate 5 mg PO DAILY 01/27/19 Atorvastatin Ca [Lipitor] 40 mg PO DAILY 01/27/19 Lung CTA : Extensive b/l emboli with saddle embolus. Upper abdomen: hepatic cysts and cholelithiasis Renal cysts: inhomonegenois enhancement possible pyelonephritis ECHo: EJF 55-60%, mild AR, rest normal Assessement and plan: Patient is a 78yo male with PMHx of HLP, HTN, and NH lymphoma s/p chemo in 2010 , now in remission who presented with sudden onset SOb and syncope. # Saddle PE with b/l embolism, stable without evidence of Right Heart Strain. On lovenox continue ,keep O2 sat. above 93%, continue coumadin , once therapeutic , patient can be discharged home. When therapeutic INR , then will need overlap of at least 4 hour on lovenox and coumadin - daily INR , f/u with resident clinic for follow up since has no PMD. as per pulmonary ,the patient does not meet the criteria for Systemic or Catheter Directed Thrombolysis. INR is 1.3 today. Laboratory Tests 01/26/19 01/27/19 01/28/19 02:35 05:40 05:40 PT with INR INR 1.20 H 1.18 H PTT (Actin FS) 41.7 H 45.6 H D-Dimer 72937 H 01/29/19 05:38 PT with INR 15.40 H INR 1.30 H PTT (Actin FS) 46.0 H D-Dimer Hx of NH's Lymphoma: age appropriate cancer screening and hypercoagulable w/u as out pt. # H/o HTN: monitor BP closely for now. # H/o Non-Hodgkins Lymphoma his pharmacy at an [facility] was called. they will not accept out side scripts. [facility] med[facility] to [facility] [place] [facility] Px: Coumadin, Lovenox
[2019-01-29] MEDS: WARFARIN NA 5 MG TABLET (UD) PO SCH (18:11)
[2019-01-30 07:39] LABS: HEMATOCRIT 41.1 % (35.4-49); HEMOGLOBIN 13.6 GM/dL (11.7-16.9); MCH 26.8 pg (25.7-33.7); MCHC 33.1 g/dl (32.0-35.9); MEAN CELL VOLUME 80.8 fl (80-96); MEAN PLT VOLUME 8.8 fl (7.5-11.1); PLATELET COUNT 127 K/MM3 (134-434); RBC 5.08 M/mm3 (4.00-5.60); RDW 14.7 % (11.9-15.9); WHITE BLOOD COUNT 5.8 K/mm3 (4.0-10.0)
[2019-01-30 07:58] LABS: INR 1.77 (0.83-1.09)
[2019-01-30 08:00] LABS: ACTIVATED PTT 48.7 SECONDS (25.2-36.5)
[2019-01-30 08:13] LABS: BLOOD UREA NITROGEN 13.7 mg/dL (7-18); CREATININE 1.1 mg/dL (0.55-1.3); POTASSIUM 4.1 mmol/L (3.5-5.1)
[2019-01-30] MEDS ORDERED: PT OWN MED DRAWER 7, Y5N ONE ×2 (09:55→21:36)
[2019-01-30] MEDS: ATORVASTATIN CA 40 MG TABLET (FP) PO SCH (10:24)
[2019-01-30] MEDS: SENNOSIDES 8.6MG TABLET (FP) PO SCH ×2 (10:24→21:41)
[2019-01-30] MEDS: ENOXAPARIN NA (PORCINE) 100 MG/1 ML DISP.SYRIN SQ SCH ×2 (10:24→21:41)
[2019-01-30] MEDS: NYSTATIN 100,000 UNIT/GM TOPICAL CREAM 15 GM TUBE TP SCH ×2 (10:26→21:44)
--- NOTE | 2019-01-30 12:19 | PN ---
Progress Note (short form) - Note Progress Note: Resting in NAD. No CP or SOB. No acute events overnight. Intake & Output 01/27/19 01/28/19 01/29/19 01/30/19 23:59 23:59 23:59 23:59 Intake Total 2150 970 400 Output Total 800 2150 Balance 1350 -1180 400 Last Vital Signs Temp Pulse Resp BP Pulse Ox 98 F 62 18 139/71 99 01/30/19 06:25 01/30/19 06:25 01/30/19 06:25 01/30/19 06:25 01/29/19 20:19 Active Medications Atorvastatin Calcium (Lipitor -) 40 mg PO DAILY [facility] Last Admin: 01/30/19 10:24 Dose: 40 mg Enoxaparin Sodium (Lovenox -) 90 mg SQ BID [facility] Last Admin: 01/30/19 10:24 Dose: 90 mg Nystatin (Mycostatin Cream -) 1 applic TP BID [facility] Last Admin: 01/30/19 10:26 Dose: 1 applic Senna (Senna -) 1 tab PO BID [facility] Last Admin: 01/30/19 10:24 Dose: 1 tab Warfarin Sodium (Coumadin -) 10 mg PO DAILY@1800 [facility] Last Admin: 01/29/19 18:11 Dose: 10 mg GENERAL: Awake and alert, NAD HEAD: Normal with no signs of trauma. EYES: Pupils equal, round and reactive to light, extraocular movements intact, sclera anicteric EARS, NOSE, THROAT: oropharynx clear without exudates. Moist mucous membranes. NECK: supple without lymphadenopathy, JVD, or masses. LUNGS: Clear to auscultation bilaterally HEART: S1S2, RRR ABDOMEN: Soft, nontender, not distended, normoactive bowel sounds UPPER EXTREMITIES: 2+ pulses, warm, well-perfused. No peripheral edema. NEUROLOGICAL: Non-focal Laboratory Results - last 24 hr 01/30/19 01/30/19 01/30/19 06:39 06:39 06:39 WBC 5.8 RBC 5.08 Hgb 13.6 Hct 41.1 MCV 80.8 MCH 26.8 MCHC 33.1 RDW 14.7 Plt Count 127 L MPV 8.8 PT with INR 21.00 H INR 1.77 H PTT (Actin FS) 48.7 H Sodium 140 Potassium 4.1 Chloride 107 Carbon Dioxide 27 Anion Gap 6 L BUN 13.7 Creatinine 1.1 Est GFR (CKD-EPI)AfAm 75.18 Est GFR (CKD-EPI)NonAf 64.86 Random Glucose 81 Calcium 9.0 ASSESSMENT/PLAN: Bilateral Pulmonary Embolism: at present hemodynamically stable without evidence of Right Heart Strain Syncope HTN Hx of Non-Hodgkins Lymphoma AC with Lovenox / Coumadin INR goal: 2 to 3 O2 to maintain saturation DC planning Dr Crouch
--- NOTE | 2019-01-30 14:16 | PN ---
Physical Exam: SUBJECTIVE: Patient seen and examined Currently, pt is afebrile, asymptomatic and has no other c/o. He is in good state of health. He has passed gas and moved his bowels today. Pt has concerns about his financial situation. Will notify social work. Denies f/c/n/v/d/sob/ chest pain. OBJECTIVE: Vital Signs Period Temp Pulse Resp BP Sys/Shabazz Pulse Ox Last 24 Hr 97.6 F-98 F 59-75 18-21 120-139/67-72 99 GENERAL: The patient is awake, alert, and fully oriented, in no acute distress. EYES: PERRL, extraocular movements intact, ENT: clear without exudates, moist mucous membranes. NECK: supple. LUNGS: Breath sounds equal, clear to auscultation bilaterally, no wheezes, no crackles, HEART: Regular rate and rhythm, S1, S2 without murmur, rub or gallop. ABDOMEN: Soft, nontender, nondistended, normoactive bowel sounds, no guarding, EXTREMITIES: 2+ pulses, warm, well-perfused, no edema. Laboratory Results - last 24 hr 01/30/19 01/30/19 01/30/19 06:39 06:39 06:39 WBC 5.8 RBC 5.08 Hgb 13.6 Hct 41.1 MCV 80.8 MCH 26.8 MCHC 33.1 RDW 14.7 Plt Count 127 L MPV 8.8 PT with INR 21.00 H INR 1.77 H PTT (Actin FS) 48.7 H Sodium 140 Potassium 4.1 Chloride 107 Carbon Dioxide 27 Anion Gap 6 L BUN 13.7 Creatinine 1.1 Est GFR (CKD-EPI)AfAm 75.18 Est GFR (CKD-EPI)NonAf 64.86 Random Glucose 81 Calcium 9.0 Active Medications Current Medications Atorvastatin Calcium (Lipitor -) 40 mg PO DAILY [facility] Last Admin: 01/30/19 10:24 Dose: 40 mg Enoxaparin Sodium (Lovenox -) 90 mg SQ BID [facility] Last Admin: 01/30/19 10:24 Dose: 90 mg Nystatin (Mycostatin Cream -) 1 applic TP BID [facility] Last Admin: 01/30/19 10:26 Dose: 1 applic Senna (Senna -) 1 tab PO BID [facility] Last Admin: 01/30/19 10:24 Dose: 1 tab Warfarin Sodium (Coumadin -) 10 mg PO DAILY@1800 [facility] Last Admin: 01/29/19 18:11 Dose: 10 mg Home Medications Medication Instructions Recorded Amlodipine Besylate 5 mg PO DAILY 01/27/19 Atorvastatin Ca [Lipitor] 40 mg PO DAILY 01/27/19 ASSESSMENT/PLAN: Pt is a 78 y/o M pmh of HTN, HLD, and Lymphoma (diagnosed 2000 now in remission ) presented w/ shortness of breath is found to have a saddle embolus on CT is admitted for PE treatment. #SOB 2/[address]: Bilateral PE w/ Saddle pulmonary embolus extending from the right main pulmonary artery into the left main pulmonary artery. Lovenox 90 sq BID Coumadin 10 mg Lovenox for 5 days (today is day 5), bridge to coumadin Discussed the need to f/u outpt age appropriate screening and hypercoag work up #HTN hold- amlodipine home med #HLD cont lipitor #Non-Hodgkins Lymphoma f/u outpt #DVT Lovenox FEN: monitor lytes, sodium controlled diet, Dispo: cont monitoring, fci AC once d/c Visit type - Emergency Visit Emergency Visit: Yes ED Registration Date: 01/26/19 Care time: The patient presented to the Emergency Department on the above date and was hospitalized for further evaluation of their emergent condition. - New Patient This patient is new to me today: Yes Date on this admission: 01/31/19 - Critical Care Critical Care patient: No - Discharge Referral Referred to [facility] Med P.C.: No ATTENDING PHYSICIAN STATEMENT I saw and evaluated the patient. I reviewed the resident's note and discussed the case with the resident. I agree with the resident's findings and plan as documented. SUBJECTIVE: OBJECTIVE: ASSESSMENT AND PLAN:
[2019-01-30] MEDS: WARFARIN NA 5 MG TABLET (UD) PO SCH (17:37)
--- NOTE | 2019-01-30 20:39 | PN ---
Teaching Attending Note Name of Resident: Harmeet Montilla ATTENDING PHYSICIAN STATEMENT I saw and evaluated the patient. I reviewed the resident's note and discussed the case with the resident. I agree with the resident's findings and plan as documented. SUBJECTIVE: Patient feels well with no acute distress, No shortness of breath. Vital Signs Temperature 97.7 F 01/30/19 18:00 Pulse Rate 72 01/30/19 18:00 Respiratory Rate 61 H 01/30/19 20:13 Blood Pressure 149/71 01/30/19 18:00 O2 Sat by Pulse Oximetry (%) 99 01/30/19 20:13 GENERAL: The patient is awake, alert, and fully oriented, in no acute distress. HEAD: Normal with no signs of trauma. EYES: PERRL, extraocular movements intact, sclera anicteric, conjunctiva clear. ENT: Ears normal, oropharynx clear without exudates, moist mucous membranes. NECK: Trachea midline, full range of motion, supple. LUNGS: Breath sounds equal, clear to auscultation bilaterally, no wheezes, no crackles, no accessory muscle use. HEART: Regular rate and rhythm, S1, S2 without murmur, rub or gallop. ABDOMEN: Soft, nontender, nondistended, normoactive bowel sounds, no guarding, no rebound, no hepatosplenomegaly, no masses. EXTREMITIES: 2+ pulses, warm, well-perfused, no edema. NEUROLOGICAL: Cranial nerves II through XII grossly intact. Normal speech, gait not observed. PSYCH: Normal mood, normal affect. SKIN: Warm, dry, normal turgor, no rashes or lesions noted CBCD WBC 5.8 K/mm3 (4.0-10.0) 01/30/19 06:39 RBC 5.08 M/mm3 (4.00-5.60) 01/30/19 06:39 Hgb 13.6 GM/dL (11.7-16.9) 01/30/19 06:39 Hct 41.1 % (35.4-49) 01/30/19 06:39 MCV 80.8 fl (80-96) 01/30/19 06:39 MCHC 33.1 g/dl (32.0-35.9) 01/30/19 06:39 RDW 14.7 % (11.9-15.9) 01/30/19 06:39 Plt Count 127 K/MM3 (134-434) L 01/30/19 06:39 MPV 8.8 fl (7.5-11.1) 01/30/19 06:39 CMP Sodium 140 mmol/L (136-145) 01/30/19 06:39 Potassium 4.1 mmol/L (3.5-5.1) 01/30/19 06:39 Chloride 107 mmol/L (98-107) 01/30/19 06:39 Carbon Dioxide 27 mmol/L (21-32) 01/30/19 06:39 Anion Gap 6 MMOL/L (8-16) L 01/30/19 06:39 BUN 13.7 mg/dL (7-18) 01/30/19 06:39 Creatinine 1.1 mg/dL (0.55-1.3) 01/30/19 06:39 Random Glucose 81 mg/dL (74-106) 01/30/19 06:39 Calcium 9.0 mg/dL (8.5-10.1) 01/30/19 06:39 Total Bilirubin 0.9 mg/dL (0.2-1) 01/27/19 05:40 AST 13 U/L (15-37) L 01/27/19 05:40 ALT 18 U/L (13-61) 01/27/19 05:40 Alkaline Phosphatase 103 U/L (45-117) 01/27/19 05:40 Total Protein 5.7 g/dl (6.4-8.2) L 01/27/19 05:40 Albumin 3.4 g/dl (3.4-5.0) 01/27/19 05:40 CARDIAC ENZYMES Creatine Kinase 91 U/L (26-308) 01/26/19 08:35 Troponin I 0.58 ng/ml (0.00-0.05) H 01/26/19 13:26 Current Medications Generic Name Dose Route Start Last Admin Trade Name Naz PRN Reason Stop Dose Admin Atorvastatin Calcium 40 mg 01/28/19 10:00 01/30/19 10:24 Lipitor - PO 40 mg DAILY [facility] Administration Enoxaparin Sodium 90 mg 01/26/19 22:00 01/30/19 10:24 Lovenox - SQ 90 mg BID [facility] Administration Nystatin 1 applic 01/27/19 22:00 01/30/19 10:26 Mycostatin Cream - TP 1 applic BID [facility] Administration Senna 1 tab 01/28/19 10:00 01/30/19 10:24 Senna - PO 1 tab BID [facility] Administration Warfarin Sodium 10 mg 01/28/19 18:00 01/30/19 17:37 Coumadin - PO 10 mg DAILY@1800 [facility] Administration Home Medications Medication Instructions Recorded Amlodipine Besylate 5 mg PO DAILY 01/27/19 Atorvastatin Ca [Lipitor] 40 mg PO DAILY 01/27/19 Lung CTA : Extensive b/l emboli with saddle embolus. Upper abdomen: hepatic cysts and cholelithiasis Renal cysts: inhomonegenois enhancement possible pyelonephritis ECHo: EJF 55-60%, mild AR, rest normal Assessement and plan: Patient is a 78yo male with PMHx of HLP, HTN, and [place] lymphoma s/p chemo in 2010 , now in remission who presented with sudden onset SOb and syncope. # Saddle PE with b/l embolism, stable without evidence of Right Heart Strain. On lovenox and coumadin continue ,keep O2 sat. above 93%, continue coumadin , once therapeutic , patient can be discharged home. When therapeutic INR , then will need overlap of at least 4 hour on lovenox and coumadin daily INR , f/u with resident clinic for follow up since has no PMD. as per pulmonary ,the patient does not meet the criteria for Systemic or Catheter Directed Thrombolysis. INR is 1.3-->1.77 today. Laboratory Tests 01/26/19 01/27/19 01/28/19 02:35 05:40 05:40 PT with INR INR 1.20 H 1.18 H PTT (Actin FS) 41.7 H 45.6 H D-Dimer [id number] H 01/29/19 05:38 PT with INR 15.40 H INR 1.30 H PTT (Actin FS) 46.0 H D-Dimer INR is 1.77 today Hx of NH's Lymphoma: age appropriate cancer screening and hypercoagulable w/u as out pt. # H/o HTN: monitor BP closely for now. # H/o Non-Hodgkins Lymphoma his pharmacy at an OSH was called. they will not accept out side scripts. [facility] to [facility] [facility] Px: Coumadin, Lovenox
[2019-01-31 07:19] LABS: HEMATOCRIT 38.5 % (35.4-49); MCH 27.2 pg (25.7-33.7); MCHC 33.7 g/dl (32.0-35.9); MEAN CELL VOLUME 80.7 fl (80-96); MEAN PLT VOLUME 9.3 fl (7.5-11.1); PLATELET COUNT 126 K/MM3 (134-434); RBC 4.78 M/mm3 (4.00-5.60); RDW 14.6 % (11.9-15.9)
[2019-01-31 07:32] LABS: INR 2.31 (0.83-1.09); PROTHROMBIN TIME (PATIENT) 27.5 SEC (9.7-13.0)
[2019-01-31 07:35] LABS: ACTIVATED PTT 50.6 SECONDS (25.2-36.5)
[2019-01-31 07:45] LABS: ALBUMIN 3.4 g/dl (3.4-5.0); BILIRUBIN,TOTAL 0.5 mg/dL (0.2-1); BLOOD UREA NITROGEN 12.6 mg/dL (7-18); CALCIUM 8.6 mg/dL (8.5-10.1); CREATININE 1.1 mg/dL (0.55-1.3); POTASSIUM 4.3 mmol/L (3.5-5.1)
[2019-01-31] MEDS: ENOXAPARIN NA (PORCINE) 100 MG/1 ML DISP.SYRIN SQ SCH ×2 (10:06→22:47)
[2019-01-31] MEDS: SENNOSIDES 8.6MG TABLET (FP) PO SCH ×2 (10:06→22:48)
[2019-01-31] MEDS: ATORVASTATIN CA 40 MG TABLET (FP) PO SCH (10:06)
[2019-01-31] MEDS: NYSTATIN 100,000 UNIT/GM TOPICAL CREAM 15 GM TUBE TP SCH ×2 (10:07→22:47)
--- NOTE | 2019-01-31 11:02 | PN ---
Progress Note (short form) - Note Progress Note: PULMONARY Denies shortness of breath or chest pain. Has been ambulating without difficulty. Vital Signs Period Temp Pulse Resp BP Sys/Shabazz Pulse Ox Last 24 Hr 97.5 F-98.4 F 59-72 15-61 114-149/57-76 99-99 Gen: NAD at rest Heart: RRR Lung: decreased breath sounds at the bases Abd: soft, nontender Ext: no edema CBC, BMP 01/31/19 05:40 01/31/19 05:40 INR, PTT INR 2.31 (0.83-1.09) H 01/31/19 05:40 Active Medications Atorvastatin Calcium (Lipitor -) 40 mg PO DAILY [facility] Last Admin: 01/31/19 10:06 Dose: 40 mg Enoxaparin Sodium (Lovenox -) 90 mg SQ BID [facility] Last Admin: 01/31/19 10:06 Dose: 90 mg Nystatin (Mycostatin Cream -) 1 applic TP BID [facility] Last Admin: 01/31/19 10:07 Dose: 1 applic Senna (Senna -) 1 tab PO BID [facility] Last Admin: 01/31/19 10:06 Dose: 1 tab Warfarin Sodium (Coumadin -) 10 mg PO DAILY@1800 [facility] Last Admin: 01/30/19 17:37 Dose: 10 mg A/P Acute Pulmonary Emboli Syncope RLE DVT HTN Hyperlipidemia h/o Lymphoma - continue anticoagulation to INR 2-3 - O2 as needed - age appropriate cancer screening as outpt - can d/c telemetry
[2019-01-31] MEDS ORDERED: PT OWN MED DRAWER 7, Y5N ONE ×3 (11:27→22:44)
--- NOTE | 2019-01-31 12:04 | PN ---
Progress Note (short form) - Note Progress Note: Patient is comfortable with no acute distress. Vital Signs Temperature 97.6 F 01/31/19 10:00 Pulse Rate 71 01/31/19 10:00 Respiratory Rate 15 01/31/19 10:00 Blood Pressure 138/62 01/31/19 10:00 O2 Sat by Pulse Oximetry (%) 99 01/31/19 09:00 GENERAL: The patient is awake, alert, and fully oriented, in no acute distress. HEAD: Normal with no signs of trauma. EYES: PERRL, extraocular movements intact, sclera anicteric, conjunctiva clear. ENT: Ears normal, oropharynx clear without exudates, moist mucous membranes. NECK: Trachea midline, full range of motion, supple. LUNGS: Breath sounds equal, clear to auscultation bilaterally, no wheezes, no crackles, no accessory muscle use. HEART: Regular rate and rhythm, S1, S2 without murmur, rub or gallop. ABDOMEN: Soft, nontender, nondistended, normoactive bowel sounds, no guarding, no rebound, no hepatosplenomegaly, no masses. EXTREMITIES: 2+ pulses, warm, well-perfused, no edema. NEUROLOGICAL: Cranial nerves II through XII grossly intact. Normal speech, gait not observed. PSYCH: Normal mood, normal affect. SKIN: Warm, dry, normal turgor, no rashes or lesions noted CBCD WBC 5.0 K/mm3 (4.0-10.0) 01/31/19 05:40 RBC 4.78 M/mm3 (4.00-5.60) 01/31/19 05:40 Hgb 13.0 GM/dL (11.7-16.9) 01/31/19 05:40 Hct 38.5 % (35.4-49) 01/31/19 05:40 MCV 80.7 fl (80-96) 01/31/19 05:40 MCHC 33.7 g/dl (32.0-35.9) 01/31/19 05:40 RDW 14.6 % (11.9-15.9) 01/31/19 05:40 Plt Count 126 K/MM3 (134-434) L 01/31/19 05:40 MPV 9.3 fl (7.5-11.1) 01/31/19 05:40 CMP Sodium 140 mmol/L (136-145) 01/31/19 05:40 Potassium 4.3 mmol/L (3.5-5.1) 01/31/19 05:40 Chloride 108 mmol/L (98-107) H 01/31/19 05:40 Carbon Dioxide 27 mmol/L (21-32) 01/31/19 05:40 Anion Gap 5 MMOL/L (8-16) L 01/31/19 05:40 BUN 12.6 mg/dL (7-18) 01/31/19 05:40 Creatinine 1.1 mg/dL (0.55-1.3) 01/31/19 05:40 Random Glucose 86 mg/dL (74-106) 01/31/19 05:40 Calcium 8.6 mg/dL (8.5-10.1) 01/31/19 05:40 Total Bilirubin 0.5 mg/dL (0.2-1) 01/31/19 05:40 AST 54 U/L (15-37) H 01/31/19 05:40 ALT 65 U/L (13-61) H 01/31/19 05:40 Alkaline Phosphatase 111 U/L (45-117) 01/31/19 05:40 Total Protein 6.0 g/dl (6.4-8.2) L 01/31/19 05:40 Albumin 3.4 g/dl (3.4-5.0) 01/31/19 05:40 CARDIAC ENZYMES Creatine Kinase 91 U/L (26-308) 01/26/19 08:35 Troponin I 0.58 ng/ml (0.00-0.05) H 01/26/19 13:26 Current Medications Generic Name Dose Route Start Last Admin Trade Name Freq PRN Reason Stop Dose Admin Atorvastatin Calcium 40 mg 01/28/19 10:00 01/31/19 10:06 Lipitor - PO 40 mg DAILY [facility] Administration Enoxaparin Sodium 90 mg 01/26/19 22:00 01/31/19 10:06 Lovenox - SQ 90 mg BID [facility] Administration Nystatin 1 applic 01/27/19 22:00 01/31/19 10:07 Mycostatin Cream - TP 1 applic BID [facility] Administration Senna 1 tab 01/28/19 10:00 01/31/19 10:06 Senna - PO 1 tab BID [facility] Administration Warfarin Sodium 10 mg 01/28/19 18:00 01/30/19 17:37 Coumadin - PO 10 mg DAILY@1800 [facility] Administration Home Medications Medication Instructions Recorded Amlodipine Besylate 5 mg PO DAILY 01/27/19 Atorvastatin Ca [Lipitor] 40 mg PO DAILY 01/27/19 Laboratory Tests 01/26/19 01/27/19 01/28/19 02:35 05:40 05:40 PT with INR INR 1.20 H 1.18 H PTT (Actin FS) 41.7 H 45.6 H D-Dimer [id number] H 01/29/19 01/30/19 01/31/19 05:38 06:39 05:40 PT with INR 15.40 H INR 1.30 H 1.77 H 2.31 H PTT (Actin FS) 46.0 H D-Dimer Lung CTA : Extensive b/l emboli with saddle embolus. Upper abdomen: hepatic cysts and cholelithiasis Renal cysts: inhomonegenois enhancement possible pyelonephritis ECHo: EJF 55-60%, mild AR, rest normal Assessement and plan: Patient is a 78yo male with PMHx of HLP, HTN, and [place] lymphoma s/p chemo in 2010 , now in remission who presented with sudden onset SOb and syncope. # Saddle PE with b/l embolism, stable without evidence of Right Heart Strain. On lovenox , and coumadin, INR is 2.57 today , will continue with 7.5mg coumadin keep O2 sat. above 93%, patient can be discharged home in am most likely. When therapeutic INR , then will need overlap of at least 4 hour on lovenox and coumadin. daily INR , f/u with resident clinic for follow up since has no PMD. INR is 1.3-->1.77--2.57 today. Hx of NH's Lymphoma: age appropriate cancer screening and hypercoagulable w/u as out pt. # H/o HTN: monitor BP closely for now. # H/o Non-Hodgkins Lymphoma His pharmacy at an OSH was called. they will not accept out side scripts. will send meds to [facility] DVT Px: Coumadin, Lovenox check INR in am , possible discharge in am coumadin 7.5mg tonight Visit type - Emergency Visit Emergency Visit: Yes ED Registration Date: 01/26/19 Care time: The patient presented to the Emergency Department on the above date and was hospitalized for further evaluation of their emergent condition. - New Patient This patient is new to me today: No - Critical Care Critical Care patient: No - Discharge Referral Referred to [facility] Med P.C.: No
[2019-01-31] MEDS ORDERED: WARFARIN NA 7.5 MG TABLET (FP) PO SCH (18:00)
[2019-02-01 07:34] LABS: HEMATOCRIT 39.9 % (35.4-49); HEMOGLOBIN 13.3 GM/dL (11.7-16.9); MCH 26.9 pg (25.7-33.7); MCHC 33.2 g/dl (32.0-35.9); MEAN CELL VOLUME 81.1 fl (80-96); MEAN PLT VOLUME 8.9 fl (7.5-11.1); PLATELET COUNT 128 K/MM3 (134-434); RBC 4.92 M/mm3 (4.00-5.60); RDW 14.7 % (11.9-15.9); WHITE BLOOD COUNT 5.2 K/mm3 (4.0-10.0)
[2019-02-01 07:49] LABS: INR 2.83 (0.83-1.09); PROTHROMBIN TIME (PATIENT) 33.7 SEC (9.7-13.0)
[2019-02-01 08:15] LABS: ALBUMIN 3.6 g/dl (3.4-5.0); BILIRUBIN,TOTAL 0.5 mg/dL (0.2-1); BLOOD UREA NITROGEN 13.4 mg/dL (7-18); CALCIUM 8.7 mg/dL (8.5-10.1); CREATININE 1.1 mg/dL (0.55-1.3); PHOSPHOROUS 3.1 mg/dL (2.5-4.9); POTASSIUM 4.1 mmol/L (3.5-5.1); TOT PROT 6.2 g/dl (6.4-8.2)
[2019-02-01] MEDS ORDERED: PT OWN MED DRAWER 7, Y5N ONE (09:46)
[2019-02-01] MEDS: ATORVASTATIN CA 40 MG TABLET (FP) PO SCH (09:52)
[2019-02-01] MEDS: ENOXAPARIN NA (PORCINE) 100 MG/1 ML DISP.SYRIN SQ SCH (09:52)
[2019-02-01] MEDS: NYSTATIN 100,000 UNIT/GM TOPICAL CREAM 15 GM TUBE TP SCH (09:53)
[2019-02-01] MEDS: SENNOSIDES 8.6MG TABLET (FP) PO SCH (09:53)
--- NOTE | 2019-02-01 11:38 | PN ---
Progress Note (short form) - Note Progress Note: PULMONARY Denies shortness of breath or chest pain. Vital Signs Period Temp Pulse Resp BP Sys/Shabazz Pulse Ox Last 24 Hr 97.6 F-98.2 F 60-78 14-17 112-143/60-76 100-100 Gen: NAD at rest Heart: RRR Lung: decreased breath sounds at the bases Abd: soft, nontender Ext: no edema CBC, BMP 02/01/19 06:05 02/01/19 06:05 INR, PTT INR 2.83 (0.83-1.09) H 02/01/19 06:05 Active Medications Atorvastatin Calcium (Lipitor -) 40 mg PO DAILY [facility] Last Admin: 02/01/19 09:52 Dose: 40 mg Enoxaparin Sodium (Lovenox -) 90 mg SQ BID [facility] Last Admin: 02/01/19 09:52 Dose: 90 mg Nystatin (Mycostatin Cream -) 1 applic TP BID [facility] Last Admin: 02/01/19 09:53 Dose: 1 applic Senna (Senna -) 1 tab PO BID [facility] Last Admin: 02/01/19 09:53 Dose: 1 tab Warfarin Sodium 5 mg/ Warfarin (Sodium 2 mg) 7 mg PO DAILY@1800 [facility] A/P Acute Pulmonary Emboli Syncope RLE DVT HTN Hyperlipidemia h/o Lymphoma - continue anticoagulation to INR 2-3 - O2 as needed - age appropriate cancer screening as outpt - can d/c telemetry - d/c planning
--- NOTE | 2019-02-01 12:35 | PN ---
Teaching Attending Note Name of Resident: Anca Ji ATTENDING PHYSICIAN STATEMENT I saw and evaluated the patient. I reviewed the resident's note and discussed the case with the resident. I agree with the resident's findings and plan as documented. SUBJECTIVE: Patient is feeling better with no acute distress. no nausea or vomiting. OBJECTIVE: Vital Signs Temperature 98.6 F 02/01/19 12:57 Pulse Rate 66 02/01/19 12:57 Respiratory Rate 17 02/01/19 12:57 Blood Pressure 148/69 02/01/19 12:57 O2 Sat by Pulse Oximetry (%) 100 02/01/19 09:00 GENERAL: The patient is awake, alert, and fully oriented, in no acute distress. HEAD: Normal with no signs of trauma. EYES: PERRL, extraocular movements intact, sclera anicteric, conjunctiva clear. ENT: Ears normal, oropharynx clear without exudates, moist mucous membranes. NECK: Trachea midline, full range of motion, supple. LUNGS: Breath sounds equal, clear to auscultation bilaterally, no wheezes, no crackles, no accessory muscle use. HEART: Regular rate and rhythm, S1, S2 without murmur, rub or gallop. ABDOMEN: Soft, nontender, nondistended, normoactive bowel sounds, no guarding, no rebound, no hepatosplenomegaly, no masses. EXTREMITIES: 2+ pulses, warm, well-perfused, no edema. NEUROLOGICAL: Cranial nerves II through XII grossly intact. Normal speech, gait not observed. PSYCH: Normal mood, normal affect. SKIN: Warm, dry, normal turgor, no rashes or lesions noted CBCD WBC 5.2 K/mm3 (4.0-10.0) 02/01/19 06:05 RBC 4.92 M/mm3 (4.00-5.60) 02/01/19 06:05 Hgb 13.3 GM/dL (11.7-16.9) 02/01/19 06:05 Hct 39.9 % (35.4-49) 02/01/19 06:05 MCV 81.1 fl (80-96) 02/01/19 06:05 MCHC 33.2 g/dl (32.0-35.9) 02/01/19 06:05 RDW 14.7 % (11.9-15.9) 02/01/19 06:05 Plt Count 128 K/MM3 (134-434) L 02/01/19 06:05 MPV 8.9 fl (7.5-11.1) 02/01/19 06:05 CMP Sodium 141 mmol/L (136-145) 02/01/19 06:05 Potassium 4.1 mmol/L (3.5-5.1) 02/01/19 06:05 Chloride 107 mmol/L (98-107) 02/01/19 06:05 Carbon Dioxide 28 mmol/L (21-32) 02/01/19 06:05 Anion Gap 6 MMOL/L (8-16) L 02/01/19 06:05 BUN 13.4 mg/dL (7-18) 02/01/19 06:05 Creatinine 1.1 mg/dL (0.55-1.3) 02/01/19 06:05 Random Glucose 85 mg/dL (74-106) 02/01/19 06:05 Calcium 8.7 mg/dL (8.5-10.1) 02/01/19 06:05 Total Bilirubin 0.5 mg/dL (0.2-1) 02/01/19 06:05 AST 50 U/L (15-37) H 02/01/19 06:05 ALT 70 U/L (13-61) H 02/01/19 06:05 Alkaline Phosphatase 112 U/L (45-117) 02/01/19 06:05 Total Protein 6.2 g/dl (6.4-8.2) L 02/01/19 06:05 Albumin 3.6 g/dl (3.4-5.0) 02/01/19 06:05 CARDIAC ENZYMES Creatine Kinase 91 U/L (26-308) 01/26/19 08:35 Troponin I 0.58 ng/ml (0.00-0.05) H 01/26/19 13:26 Hepatic Panel Total Bilirubin 0.5 mg/dL (0.2-1) 02/01/19 06:05 AST 50 U/L (15-37) H 02/01/19 06:05 ALT 70 U/L (13-61) H 02/01/19 06:05 Alkaline Phosphatase 112 U/L (45-117) 02/01/19 06:05 Albumin 3.6 g/dl (3.4-5.0) 02/01/19 06:05 Home Medications Medication Instructions Recorded Atorvastatin Ca [Lipitor] 40 mg PO DAILY 01/27/19 Amlodipine Besylate [Norvasc -] 2.5 mg PO DAILY #30 tablet 02/01/19 Warfarin Na [Coumadin -] 7 mg PO DAILY@1800 #30 tablet 02/01/19 Warfarin Na [Coumadin -] 7 mg PO DAILY@1800 #30 tablet 02/01/19 Lung CTA : Extensive b/l emboli with saddle embolus. Upper abdomen: hepatic cysts and cholelithiasis Renal cysts: inhomonegenois enhancement possible pyelonephritis ECHo: EJF 55-60%, mild AR, rest normal Assessement and plan: Patient is a 78yo male with PMHx of HLP, HTN, and [place] lymphoma s/p chemo in 2010 , now in remission who presented with sudden onset SOb and syncope. # Saddle PE with b/l embolism, stable without evidence of Right Heart Strain. s/ o lovenox , and coumadin, INR is 2.57-->2.83 today , will discharge the patient home today on 7.0mg coumadin today , keep O2 sat. above 93%.Follow up with resident clinic this Saturday to have the level checked of your INR and adjust the coumdin level accordingly. INR is 1.3-->1.77--2.57-->2.83 INR today. ( we reduced the dose of coumadin from 7.5mg to 7.0mg) daily , check the level in am and follow with the resident's clinic accordingly. Hx of NH's Lymphoma: age appropriate cancer screening and hypercoagulable w/u as out pt. # H/o HTN: monitor BP closely for now. # H/o Non-Hodgkins Lymphoma His pharmacy at an OSH was called. they will not accept out side scripts. [facility] meds to [facility] check INR with the clinic , continue with coumadin 7.0mg and check INR in am
--- NOTE | 2019-02-01 12:41 | DS ---
Physical Exam: SUBJECTIVE: Patient seen and examined. No chest pain, no SOB. Had a BM yesterday. Has been on coumadin bridge from [facility]. Now with therapeutic INR for 2 days. OBJECTIVE: Vital Signs Period Temp Pulse Resp BP Sys/Shabazz Pulse Ox Last 24 Hr 97.6 F-98.2 F 60-78 14-17 112-143/60-76 100-100 Vital Signs Temp 98.0 F 02/01/19 06:00 Pulse 68 02/01/19 10:00 Resp 17 02/01/19 10:00 BP 134/69 02/01/19 10:00 Pulse Ox 100 02/01/19 09:00 Intake & Output 01/31/19 02/01/19 02/01/19 23:59 11:59 23:59 Intake Total 370 Output Total 1100 Balance 370 -1100 Intake: IV 10 RISHI #20 01/31 10 Oral 360 Output: Urine 1100 Void 1100 Other: Voiding Method Toilet Toilet Toilet # Unmeasured Voids Void 2 Bowel Movement Yes PHYSICAL EXAM GENERAL: The patient is awake, alert, and fully oriented, in no acute distress. EYES: PERRL, extraocular movements intact ENT: Ears normal, nares patent, oropharynx clear without exudates, moist mucous membranes. NECK: Trachea midline, full range of motion, supple. LUNGS: Breath sounds equal, clear to auscultation bilaterally, no wheezes, no crackles, no accessory muscle use. HEART: Regular rate and rhythm, S1, S2 without murmur, rub or gallop. ABDOMEN: Soft, nontender, nondistended, normoactive bowel sounds, no guarding, no rebound, no hepatosplenomegaly, no masses. EXTREMITIES: 2+ pulses, warm, well-perfused, no edema. NEUROLOGICAL: Cranial nerves II through XII grossly intact. Normal speech, gait not observed. PSYCH: Normal mood, normal affect. SKIN: Warm, dry, normal turgor, no rashes or lesions noted. LABS Laboratory Results - last 24 hr 02/01/19 02/01/19 02/01/19 06:05 06:05 06:05 WBC 5.2 RBC 4.92 Hgb 13.3 Hct 39.9 MCV 81.1 MCH 26.9 MCHC 33.2 RDW 14.7 Plt Count 128 L MPV 8.9 PT with INR 33.70 H INR 2.83 H PTT (Actin FS) 55.0 H Sodium 141 Potassium 4.1 Chloride 107 Carbon Dioxide 28 Anion Gap 6 L BUN 13.4 Creatinine 1.1 Est GFR (CKD-EPI)AfAm 75.18 Est GFR (CKD-EPI)NonAf 64.86 Random Glucose 85 Calcium 8.7 Phosphorus 3.1 Magnesium 2.0 Total Bilirubin 0.5 AST 50 H ALT 70 H Alkaline Phosphatase 112 Total Protein 6.2 L Albumin 3.6 HOSPITAL COURSE: Date of Admission:01/26/19 Date of Discharge: 02/01/19 Discharge Summary Problems reviewed: Yes Reason For Visit: SADDLE EMBOLUS OF PULMONARY ARTERY Current Active Problems Saddle embolism of pulmonary artery (Acute) Condition: Improved - Instructions Diet, Activity, Other Instructions: You came in and were admitted for a clot in your lungs and legs Medications: You were started on a blood thinner- coumadin 7mg dialy Your blood pressure medication- amlodipine was held while you were here We are continuing all other medications Follow up: You will continue using the blood thinner and follow up with your primary care doctor to maintain the INR-between 2-3 Make an appointment for Saturday02/02/19 to get your INR checked and have your coumadin dose adjusted as needed Follow up with your primary care doctor to decide restarting your blood pressure medication We are giving you contact information for [facility], please make an appointment to See Dr Montilla (Under Dr Farley) on Saturday Morning You should also follow up with the lung doctors in 2 weeks time, their information is attached Other advise: You need to keep a fixed quantity of green leafy vegetable in your diet as changes in the leafy green vegetables can affect the number of the INR You also need to be careful and avoid falls or injuries as you thin blood could increase your risk of fatal bleed You will also need to follow up for all cancer screenings appropriate for your age PLEASE TAKE (WARFARIN 2MG +5MG = 7MG TOTAL) DAILY AT 6PM EVERY PLEASE GO TO THE CLINIC ON SATURDAY ;January , TO CHECK YOU WARFARIN LEVEL BY CHECKING YOUR INR SO THAT IF THE DOSE NEEDED TO BE ADJUSTED , CAN BE ADJUSTED ACCORDING. PLEASE TRY TO PREVENT FALLS. Referrals: Clay Farley MD [Staff Physician] - 02/02/19 Lamont Crouch MD [Staff Physician] - 2 Weeks (Follow up for PE) Disposition: HOME - Home Medications Comprehensive Discharge Medication List: Ambulatory Orders Atorvastatin Ca [Lipitor] 40 mg PO DAILY 01/27/19 Amlodipine Besylate 5 mg PO DAILY #30 tablet 02/01/19 Warfarin Na [Coumadin -] 7 mg PO DAILY@1800 #30 tablet 02/01/19 Warfarin Na [Coumadin -] 7 mg PO DAILY@1800 #30 tablet 02/01/19 - Discharge Referral Referred to [facility] Med [facility] No ATTENDING PHYSICIAN STATEMENT I saw and evaluated the patient. I reviewed the resident's note and discussed the case with the resident. I agree with the resident's findings and plan as documented. SUBJECTIVE: OBJECTIVE: ASSESSMENT AND PLAN:
--- NOTE | 2019-02-01 12:42 | DS ---
Physical Exam: SUBJECTIVE: Patient seen and examined. Patient seen and examined. No chest pain , no SOB. Had a BM yesterday. Has been on coumadin bridge from [facility]. Now with therapeutic INR for 2 days. OBJECTIVE: Vital Signs Period Temp Pulse Resp BP Sys/Shabazz Pulse Ox Last 24 Hr 97.6 F-98.2 F 60-78 14-17 112-143/60-76 100-100 Vital Signs Temp 98.0 F 02/01/19 06:00 Pulse 68 02/01/19 10:00 Resp 17 02/01/19 10:00 BP 134/69 02/01/19 10:00 Pulse Ox 100 02/01/19 09:00 Intake & Output 01/31/19 02/01/19 02/01/19 23:59 11:59 23:59 Intake Total 370 Output Total 1100 Balance 370 -1100 Intake: IV 10 RISHI #20 01/31 10 Oral 360 Output: Urine 1100 Void 1100 Other: Voiding Method Toilet Toilet Toilet # Unmeasured Voids Void 2 Bowel Movement Yes PHYSICAL EXAM GENERAL: The patient is awake, alert, and fully oriented, in no acute distress. EYES: PERRL, extraocular movements intact ENT: moist mucous membranes. LUNGS: Breath sounds equal, clear to auscultation bilaterally, no wheezes, no crackles HEART: Regular rate and rhythm, S1, S2 without murmur ABDOMEN: Soft, nontender, nondistended, normoactive bowel sounds, no guarding, no rebound, no hepatosplenomegaly, no masses. EXTREMITIES: 2+ pulses, warm, well-perfused, no edema. Hyperpigmented, nystatin powder between toes NEUROLOGICAL: Cranial nerves II through XII grossly intact. Normal speech, gait not observed. PSYCH: Normal mood, normal affect. LABS Laboratory Results - last 24 hr 02/01/19 02/01/19 02/01/19 06:05 06:05 06:05 WBC 5.2 RBC 4.92 Hgb 13.3 Hct 39.9 MCV 81.1 MCH 26.9 MCHC 33.2 RDW 14.7 Plt Count 128 L MPV 8.9 PT with INR 33.70 H INR 2.83 H PTT (Actin FS) 55.0 H Sodium 141 Potassium 4.1 Chloride 107 Carbon Dioxide 28 Anion Gap 6 L BUN 13.4 Creatinine 1.1 Est GFR (CKD-EPI)AfAm 75.18 Est GFR (CKD-EPI)NonAf 64.86 Random Glucose 85 Calcium 8.7 Phosphorus 3.1 Magnesium 2.0 Total Bilirubin 0.5 AST 50 H ALT 70 H Alkaline Phosphatase 112 Total Protein 6.[address]: Bilateral PE w/ Saddle pulmonary embolus extending from the right main pulmonary artery into the left main pulmonary artery. HOSPITAL COURSE: Date of Admission:01/26/19 Date of Discharge: 02/01/19 Pt is a 78 y/o M pmh of HTN, HLD, and Lymphoma (diagnosed 2000 now in remission ) presented w/ shortness of breath is found to have a saddle embolus on CT is admitted for PE treatment was bridged from lovenox to coumadin to be discharged on 7mg of coumadin (2mg and 5mg tablet). Pt reports last colonoscopy 2002, recommended follow up colonoscopy and other age appropriate cancer screens and hypercoagulable workup as an outpatient. Pt has prescriptions from [facility] with Dr Floyd Flood but we recommended the Resident clinic for urgent INR follow up for Saturday02/02/19. Pt's home amlodipine of 5mg had been held while here for initial hypotension, but we restarted amlodipine at 2.5mg. Pt will continue other medications as prescribed. Minutes to complete discharge: 30 Discharge Summary Problems reviewed: Yes Reason For Visit: SADDLE EMBOLUS OF PULMONARY ARTERY Current Active Problems Saddle embolism of pulmonary artery (Acute) Condition: Improved - Instructions Diet, Activity, Other Instructions: You came in and were admitted for a clot in your lungs and legs Medications: You were started on a blood thinner- coumadin 7mg dialy Your blood pressure medication- amlodipine was held while you were here We are continuing all other medications Follow up: You will continue using the blood thinner and follow up with your primary care doctor to maintain the INR-between 2-3 Make an appointment for Saturday02/02/19 to get your INR checked and have your coumadin dose adjusted as needed Follow up with your primary care doctor to decide restarting your blood pressure medication We are giving you contact information for [facility], please make an appointment to See Dr Montilla (Under Dr Farley) on Saturday Morning You should also follow up with the lung doctors in 2 weeks time, their information is attached Other advise: You need to keep a fixed quantity of green leafy vegetable in your diet as changes in the leafy green vegetables can affect the number of the INR You also need to be careful and avoid falls or injuries as you thin blood could increase your risk of fatal bleed You will also need to follow up for all cancer screenings appropriate for your age PLEASE TAKE (WARFARIN 2MG +5MG = 7MG TOTAL) DAILY AT 6PM EVERY PLEASE GO TO THE CLINIC ON SATURDAY ;January , TO CHECK YOU WARFARIN LEVEL BY CHECKING YOUR INR SO THAT IF THE DOSE NEEDED TO BE ADJUSTED , CAN BE ADJUSTED ACCORDING. take amlodipine 2.5mg daily since your blood pressure was on a low side in the hospital and follow up with your doctor for recheck the blood pressure closely. PLEASE TRY TO PREVENT FALLS. Referrals: Clay Farley MD [Staff Physician] - 02/02/19 Lamont Crouch MD [Staff Physician] - 2 Weeks (Follow up for PE) Disposition: HOME - Home Medications Comprehensive Discharge Medication List: Ambulatory Orders Atorvastatin Ca [Lipitor] 40 mg PO DAILY 01/27/19 Amlodipine Besylate [Norvasc -] 2.5 mg PO DAILY #30 tablet 02/01/19 Warfarin Na [Coumadin -] 7 mg PO DAILY@1800 #30 tablet 02/01/19 Warfarin Na [Coumadin -] 7 mg PO DAILY@1800 #30 tablet 02/01/19 This patient is new to me today: Yes Date on this admission: 02/01/19 Emergency Visit: Yes ED Registration Date: 01/26/19 Care time: The patient presented to the Emergency Department on the above date and was hospitalized for further evaluation of their emergent condition. Critical Care patient: No - Discharge Referral Referred to [facility] Med [facility].C.: No ATTENDING PHYSICIAN STATEMENT I saw and evaluated the patient. I reviewed the resident's note and discussed the case with the resident. I agree with the resident's findings and plan as documented. SUBJECTIVE: OBJECTIVE: ASSESSMENT AND PLAN:
[2019-02-01 12:59] VITALS: BP 148/69; PULSE 66
[2019-02-01 13:41] VITALS: TEMP 98.6
[2019-02-01] MEDS ORDERED: WARFARIN NA 5 MG, WARFARIN NA 2 MG PO SCH (18:00)
[2019-02-01] MEDS ORDERED: WARFARIN NA 1 MG TABLET (FP) PO SCH (18:00)
== END 2019-02-01 14:19 | disposition home or self-care (01) | DRG 134 ==
LOC: JER 00:49 → JERBED 06:50 → J2W 17:33
PROVIDERS: ADMIT Internal Medicine; ATTEND Internal Medicine
DX: I26.92 Saddle embolus of pulmonary artery without acute cor pulmonale (principal); C85.90 Non-Hodgkin lymphoma, unspecified, unspecified site; Z88.0 Allergy status to penicillin; I10 Essential (primary) hypertension; E78.5 Hyperlipidemia, unspecified
CPT/HCPCS: 36415; 71045-TC-FY; 71275-TC; 80048; 80053; 82550; 83735; 83880; 84100; 84484; 85025; 85027; 85379; 85610; 85730; 93005; 93010; 93306-TC; 93970-TC; 99285-25; J1644; J7030